=== PATIENT | male | born 1970 | race Caucasian/White ===

== ENCOUNTER 2017-03-24 16:12 | Emergency (ER) | payer OTHER ==
[~2017-03-24] VITALS: Ht 185.4 cm; Wt 120.0 kg
[~2017-03-24 16:12] MED LIST: ACET500T3 PO; HYDR-2374 PO; IBUP-232 PO; TIZA2CAP3 PO
[2017-03-24 16:13] VITALS: BP 153/97; PULSE 102; RESP 20; TEMP 97.9; O2SAT 96
== END 2017-03-24 18:42 | disposition left against medical advice (07) ==
LOC: NED 16:12
DX: R68.89 Other general symptoms and signs (principal)
CPT/HCPCS: 99281

== ENCOUNTER 2017-11-19 08:08 | Inpatient (IN) | payer OTHER ==
[~2017-11-19] VITALS: Ht 185.4 cm; Wt 125.8 kg
[~2017-11-19 08:08] MED LIST changes: -ACET500T3 PO; +AMIT50TA3 PO; +FENT50DI T-DERMAL; -HYDR-2374 PO; +MEDI220T PO; +MORP1TAB26 PO; +OXYC1TAB36 PO; +TEST200I13 IM; -TIZA2CAP3 PO
[2017-11-19] MEDS ORDERED: ALVIMOPAN 12 MG CAPSULE - On Call PO SCH (09:15)
[2017-11-19] MEDS ORDERED: POVIDONE IODINE 5% (ANTISEPSIS KIT) 4 APPLICATIONS EACH NARE PRN (09:30)
[2017-11-19] MEDS ORDERED: metroNIDAZOLE 500 MG INJ 100 ML IV SCH (09:30)
[2017-11-19] MEDS ORDERED: ACETAMINOPHEN 1000 MG/100 ML 100 ML IV SCH (09:30)
[2017-11-19] MEDS ORDERED: CHLORHEXIDINE GLUCONATE 2 % 1 PACK (2 CLOTHS) TOPICAL PRN (09:30)
[2017-11-19] MEDS ORDERED: METOPROLOL TARTRATE 25 MG TAB PO PRN (09:30)
[2017-11-19] MEDS ORDERED: SODIUM CHLORID 0.9% 500 ML IV PRN (09:30)
[2017-11-19] MEDS ORDERED: LACTATED RINGER'S 1000 ML IV PRN (09:30)
[2017-11-19] MEDS ORDERED: ceFAZolin 2 GM PREMIX 50 ML IV SCH (09:30)
[2017-11-19] MEDS ORDERED: ARTIFICIAL TEARS OPTH OINT 3.5 APPLIC/3.5 GM TUBO ONE (11:29)
[2017-11-19] MEDS ORDERED: VECURONIUM BROMIDE 20 MG VIAL IV ONE (12:00)
[2017-11-19] MEDS ORDERED: ceFAZolin INJ 1,000 MG VIAL IV ONE ×2 (12:00→17:02)
[2017-11-19] MEDS ORDERED: LIDOCAINE HCL 1% PF 5 ML SYRINGE OTHER ONE (12:00)
[2017-11-19] MEDS ORDERED: ROCURONIUM INJ 50 MG/5 ML SYRINGE IV PUSH ONE (12:00)
[2017-11-19] MEDS ORDERED: NORMOSOL R INJ 1,000 ML IV ONE (12:00)
[2017-11-19] MEDS ORDERED: DEXAMETHASONE SOD PHOS 4 MG/ML VIAL IV ONE (12:00)
[2017-11-19] MEDS ORDERED: STERILE WATER FOR INJECTION 20 ML VIAL IV ONE (12:00)
[2017-11-19] MEDS ORDERED: GLYCOPYRROLATE 1 MG/5 ML SYRINGE IV PUSH ONE (12:00)
[2017-11-19] MEDS ORDERED: SODIUM CHLORIDE 0.9% 20 ML VIAL IV ONE (12:00)
[2017-11-19] MEDS ORDERED: ESMOLOL HCL 100 MG/10 ML VIAL IV ONE (12:00)
[2017-11-19] MEDS ORDERED: PROPOFOL 200 MG/20 ML AMP IV ONE (12:00)
[2017-11-19] MEDS ORDERED: HYDROmorphone HCL PF 1 MG/ML VIAL ONE (12:09)
[2017-11-19] MEDS ORDERED: BUPIVACAINE/EPINEPHRINE 0.25% 50 ML VIAL ONE (12:09)
[2017-11-19] MEDS ORDERED: FAMOTIDINE 20 MG/2 ML VIAL ONE (12:09)
[2017-11-19] MEDS ORDERED: GLUCAGON 1 MG/ML VIAL ONE (16:12)
[2017-11-19] MEDS ORDERED: MIDAZOLAM HCL 2 MG/2 ML VIAL ONE ×2 (17:28→19:46)
[2017-11-19] MEDS ORDERED: SUGAMMADEX SODIUM 200 MG/2 ML VIAL IV PUSH ONE (17:29)
[2017-11-19] MEDS ORDERED: Post-op Orders (for Pharmacy) XX ONE (17:30)
[2017-11-19] MEDS ORDERED: ZOLPIDEM TARTRATE 5 MG TAB PO PRN (17:30)
[2017-11-19] MEDS ORDERED: ONDANSETRON HCL 4 MG/2 ML VIAL IV PUSH PRN (17:30)
[2017-11-19] MEDS ORDERED: SODIUM CHLORIDE 0.9% FLUSH 10 ML FLUSH IV FLUSH PRN (17:30)
[2017-11-19] MEDS ORDERED: NALOXONE HCL 0.4 MG/ML AMP IV PUSH PRN ×2 (17:30)
[2017-11-19] MEDS ORDERED: diphenhydrAMINE HCL 50 MG/ML VIAL IV PUSH PRN (17:30)
[2017-11-19] MEDS: PCA - TOTAL MG DILAUDID DELIVERED PER SHIFT OTHER SCH ×2 (17:30→22:00)
[2017-11-19] MEDS ORDERED: DO NOT ADM ANY ANTICOAGULANT DRUGS PRN (17:45)
[2017-11-19] MEDS ORDERED: *MEPERIDINE 25 MG INJ VIAL PERIprocedural Use ONLY ONE (17:51)
[2017-11-19] MEDS ORDERED: fentaNYL 50 MCG/HR PATCH T-DERMAL SCH (18:00)
[2017-11-19] MEDS ORDERED: *HYDROmorphone PF 1 MG VIAL PERIprocedural Use ONLY ONE ×4 (18:03→18:41)
[2017-11-19] MEDS ORDERED: BACITRACIN TOP OINT 15 GM TUBE ONE (18:06)
[2017-11-19] MEDS: KETOROLAC TROMETHAMINE 30 MG/ML (IVP) VIAL IV PUSH SCH ×2 (18:20→23:14)
[2017-11-19] MEDS: PANTOPRAZOLE SODIUM 40 MG VIAL IV PUSH SCH (18:25)
[2017-11-19] MEDS: LACTATED RINGER'S 1000 ML INJ 1,000 ML IV SCH (18:30)
[2017-11-19] MEDS: ACETAMINOPHEN 1000 MG/100 ML 100 ML IV SCH ×2 (18:30→23:14)
[2017-11-19] MEDS: HYDROmorphone HCL PCA 6 MG/30 ML IV SCH ×2 (18:37→23:31)
[2017-11-19] MEDS ORDERED: BUPIVACAINE LIPOSOME PF 1.3% 20 ML VIAL ONE (19:43)
[2017-11-19] MEDS ORDERED: LIDOCAINE HCL 1% 20 ML VIAL ONE (19:47)
[2017-11-19 20:00] VITALS: BP 125/98; PULSE 89; RESP 17; TEMP 99.2; O2SAT 95
[2017-11-19] MEDS ORDERED: MIDAZOLAM HCL 2 MG/2 ML VIAL IV ONE (20:30)
[2017-11-19] MEDS: SODIUM CHLORIDE 0.9% FLUSH 10 ML FLUSH IV FLUSH SCH (21:00)
[2017-11-19] MEDS: AMITRIPTYLINE HCL 50 MG TAB PO SCH (23:12)
[2017-11-19] MEDS: MORPHINE SULFATE 60 MG CONTROLLED RELEASE TAB PO SCH (23:13)
[2017-11-20] VITALS: BP 113/67; PULSE 90; RESP 17; TEMP 98.7; O2SAT 96
[2017-11-20] MEDS: LACTATED RINGER'S 1000 ML INJ 1,000 ML IV SCH ×3 (02:17→22:03)
[2017-11-20 04:00] VITALS: BP 112/62; PULSE 72; RESP 17; TEMP 98.9; O2SAT 94
[2017-11-20] MEDS: HYDROmorphone HCL PCA 6 MG/30 ML IV SCH ×5 (04:21→22:59)
[2017-11-20] MEDS: MORPHINE SULFATE 60 MG CONTROLLED RELEASE TAB PO SCH ×3 (05:46→22:04)
[2017-11-20] MEDS: ACETAMINOPHEN 1000 MG/100 ML 100 ML IV SCH ×2 (05:46→11:45)
[2017-11-20] MEDS: KETOROLAC TROMETHAMINE 30 MG/ML (IVP) VIAL IV PUSH SCH ×3 (05:47→18:21)
[2017-11-20] MEDS: PCA - TOTAL MG DILAUDID DELIVERED PER SHIFT OTHER SCH ×3 (05:55→22:00)
[2017-11-20 08:00] VITALS: BP 102/59; PULSE 88; RESP 17; TEMP 97; O2SAT 93
[2017-11-20 08:43] LABS: AUTOMATED NEUTROPHIL # 11.2 TH/MM3 (1.8-7.7); BASOPHIL % 0.2 % (0.0-2.0); EOSINOPHIL % 0.1 % (0.0-4.0); HEMATOCRIT 34.7 % (39.0-51.0); HEMOGLOBIN 11.7 GM/DL (13.0-17.0); LYMPH % 6.7 % (9.0-44.0); LYMPHOCYTE # 0.9 TH/MM3 (1.0-4.8); MEAN CELL VOLUME 90.8 FL (80.0-100.0); MEAN CORPUSCULAR HEMOGLOBIN 30.7 PG (27.0-34.0); MEAN CORPUSCULAR HGB CONC 33.8 % (32.0-36.0); MEAN PLATELET VOLUME 9.1 FL (7.0-11.0); MONO % 7.7 % (0.0-8.0); NEUT % 85.3 % (16.0-70.0); PLATELET COUNT 195 TH/MM3 (150-450); RED BLOOD COUNT 3.82 MIL/MM3 (4.50-5.90); RED CELL DISTRIBUTION WIDTH 13.6 % (11.6-17.2); WHITE BLOOD COUNT 13.1 TH/MM3 (4.0-11.0)
[2017-11-20] MEDS: SODIUM CHLORIDE 0.9% FLUSH 10 ML FLUSH IV FLUSH SCH ×2 (09:00→21:00)
[2017-11-20 09:13] LABS: BICARBONATE 27.4 MEQ/L (21.0-32.0); CREATININE 0.96 MG/DL (0.60-1.30)
[2017-11-20] MEDS: DOCUSATE SODIUM 100 MG CAP PO SCH ×2 (09:45→22:03)
[2017-11-20] MEDS: ALVIMOPAN 12 MG CAPSULE - Post-op dosing PO SCH ×2 (09:49→22:04)
--- NOTE | 2017-11-20 09:49 | HHI.PR ---
Subjective Subjective Notes C/o some pain, denies nausea. Had some small liquid BMs last one only slightly bloody. Has been out of bed. Objective Vitals/I&O Vital Signs Date Time Temp Pulse Resp B/P (MAP) Pulse Ox O2 Delivery O2 Flow Rate FiO2 11/20/17 08:00 97.0 88 17 102/59 (73) 93 11/20/17 02:04 Nasal Cannula 2.00 Labs Laboratory Tests Test 11/20/17 07:28 White Blood Count 13.1 Red Blood Count 3.82 Hemoglobin 11.7 Hematocrit 34.7 Mean Corpuscular Volume 90.8 Mean Corpuscular Hemoglobin 30.7 Mean Corpuscular Hemoglobin Concent 33.8 Red Cell Distribution Width 13.6 Platelet Count 195 Mean Platelet Volume 9.1 Neutrophils (%) (Auto) 85.3 Lymphocytes (%) (Auto) 6.7 Monocytes (%) (Auto) 7.7 Eosinophils (%) (Auto) 0.1 Basophils (%) (Auto) 0.2 Neutrophils # (Auto) 11.2 Lymphocytes # (Auto) 0.9 Monocytes # (Auto) 1.0 Eosinophils # (Auto) 0.0 Basophils # (Auto) 0.0 CBC Comment DIFF FINAL Differential Comment Blood Urea Nitrogen 17 Creatinine 0.96 Random Glucose 101 Calcium Level 8.0 Sodium Level 134 Potassium Level 4.2 Chloride Level 100 Carbon Dioxide Level 27.4 Anion Gap 7 Estimat Glomerular Filtration Rate 84 Narrative Exam NAD, comfortable, alert nonlabored breathing Abd: soft, inc intact. Bandage at colostomy site somewhat bloody. Goins clear urine A/P Assessment and Plan 47 yo M POD 1 robot assisted colostomy reversal. Doing well post op. D/c goins. Soft diet. Stool softeners. Continue home fentanyl patch and oramorph. 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 Patricio. Leopoldo Chicas MD Nov 20, 2017 09:49
[2017-11-20 12:00] VITALS: BP 103/65; PULSE 85; RESP 17; TEMP 97.3; O2SAT 94
[2017-11-20 16:00] VITALS: BP 105/68; PULSE 82; RESP 18; TEMP 96.5; O2SAT 94
[2017-11-20] MEDS: ENOXAPARIN SODIUM 40 MG/0.4 ML SYRINGE SQ SCH (18:20)
[2017-11-20] MEDS: PANTOPRAZOLE SODIUM 40 MG VIAL IV PUSH SCH (18:21)
[2017-11-20 20:00] VITALS: BP 125/76; PULSE 95; RESP 17; TEMP 98.6; O2SAT 93
[2017-11-20] MEDS: AMITRIPTYLINE HCL 50 MG TAB PO SCH (22:03)
[2017-11-21] VITALS: BP 131/62; PULSE 91; RESP 17; TEMP 98.9; O2SAT 98
[2017-11-21] MEDS: HYDROmorphone HCL PCA 6 MG/30 ML IV SCH ×5 (03:11→22:03)
[2017-11-21 04:00] VITALS: BP 137/61; PULSE 92; RESP 17; TEMP 98.9; O2SAT 95
[2017-11-21 05:33] LABS: AUTOMATED NEUTROPHIL # 6.3 TH/MM3 (1.8-7.7); BASOPHIL # 0.1 TH/MM3 (0-0.2); BASOPHIL % 0.8 % (0.0-2.0); EOSINOPHIL # 0.4 TH/MM3 (0-0.4); EOSINOPHIL % 4.8 % (0.0-4.0); HEMATOCRIT 34.6 % (39.0-51.0); LYMPH % 18.2 % (9.0-44.0); LYMPHOCYTE # 1.7 TH/MM3 (1.0-4.8); MEAN CELL VOLUME 91.2 FL (80.0-100.0); MEAN CORPUSCULAR HEMOGLOBIN 31.7 PG (27.0-34.0); MEAN CORPUSCULAR HGB CONC 34.7 % (32.0-36.0); MEAN PLATELET VOLUME 9.2 FL (7.0-11.0); MONOCYTE # 0.7 TH/MM3 (0-0.9); NEUT % 68.2 % (16.0-70.0); PLATELET COUNT 199 TH/MM3 (150-450); RED BLOOD COUNT 3.79 MIL/MM3 (4.50-5.90); WHITE BLOOD COUNT 9.3 TH/MM3 (4.0-11.0)
[2017-11-21] MEDS: MORPHINE SULFATE 60 MG CONTROLLED RELEASE TAB PO SCH ×3 (05:46→22:08)
[2017-11-21] MEDS: KETOROLAC TROMETHAMINE 30 MG/ML (IVP) VIAL IV PUSH SCH ×5 (05:46→23:23)
[2017-11-21] MEDS: PCA - TOTAL MG DILAUDID DELIVERED PER SHIFT OTHER SCH ×3 (05:49→22:00)
[2017-11-21 08:00] VITALS: BP 113/70; PULSE 78; RESP 18; TEMP 98.1; O2SAT 95
[2017-11-21] MEDS: SODIUM CHLORIDE 0.9% FLUSH 10 ML FLUSH IV FLUSH SCH ×2 (09:00→21:00)
[2017-11-21] MEDS: DOCUSATE SODIUM 100 MG CAP PO SCH ×2 (09:05→22:07)
[2017-11-21] MEDS: ALVIMOPAN 12 MG CAPSULE - Post-op dosing PO SCH ×2 (09:05→22:07)
[2017-11-21 12:00] VITALS: BP 123/75; PULSE 72; RESP 18; TEMP 96.5; O2SAT 96
[2017-11-21] MEDS ORDERED: oxyCODONE/ACETAMINOPHEN 10 MG/325 MG TAB PO PRN (13:15)
--- NOTE | 2017-11-21 14:12 | HHI.PR ---
Subjective Subjective Notes Somewhat irritable. Concerned about the abrasion on his face causing scarring. He is also having more pain today. 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 He is tolerating soft diet/ full liquids. + flatus and has had BMs. Objective Vitals/I&O Vital Signs Date Time Temp Pulse Resp B/P (MAP) Pulse Ox O2 Delivery O2 Flow Rate FiO2 11/21/17 12:00 96.5 72 18 123/75 (91) 96 11/20/17 02:04 Nasal Cannula 2.00 Labs Laboratory Tests Test 11/21/17 04:38 White Blood Count 9.3 Red Blood Count 3.79 Hemoglobin 12.0 Hematocrit 34.6 Mean Corpuscular Volume 91.2 Mean Corpuscular Hemoglobin 31.7 Mean Corpuscular Hemoglobin Concent 34.7 Red Cell Distribution Width 14.0 Platelet Count 199 Mean Platelet Volume 9.2 Neutrophils (%) (Auto) 68.2 Lymphocytes (%) (Auto) 18.2 Monocytes (%) (Auto) 8.0 Eosinophils (%) (Auto) 4.8 Basophils (%) (Auto) 0.8 Neutrophils # (Auto) 6.3 Lymphocytes # (Auto) 1.7 Monocytes # (Auto) 0.7 Eosinophils # (Auto) 0.4 Basophils # (Auto) 0.1 CBC Comment DIFF FINAL Differential Comment Narrative Exam NAD, comfortable, alert nonlabored breathing Abd: soft, inc c/d/i A/P Assessment and Plan 47 yo M POD 2 robot assisted colostomy reversal. Doing well post op. Pain today. Soft diet. Stool softeners. Continue home fentanyl patch and oramorph. Dilaudid SOLUTION MAKE UP OPERATOR. Add percocet today and he will attempt weaning from SOLUTION MAKE UP OPERATOR Bacitracin for facial abrasion which appears to be from tape during operation. SCDs. Lovenox. Juan Francisco,Leopoldo MURILLO Nov 21, 2017 14:12
[2017-11-21 16:00] VITALS: BP 129/79; PULSE 80; RESP 18; TEMP 98.3; O2SAT 97
[2017-11-21] MEDS: BACITRACIN TOP OINT 15 GM TUBE TOPICAL SCH ×2 (16:43→22:19)
[2017-11-21] MEDS: PANTOPRAZOLE SODIUM 40 MG VIAL IV PUSH SCH (16:44)
[2017-11-21] MEDS: ENOXAPARIN SODIUM 40 MG/0.4 ML SYRINGE SQ SCH (16:45)
[2017-11-21] MEDS: oxyCODONE/ACETAMINOPHEN 10 MG/325 MG TAB PO PRN ×2 (16:46→23:23)
[2017-11-21 20:00] VITALS: BP 132/74; PULSE 76; RESP 20; TEMP 96.9; O2SAT 93
[2017-11-21] MEDS: AMITRIPTYLINE HCL 50 MG TAB PO SCH (22:07)
[2017-11-22] VITALS: BP 124/78; PULSE 67; RESP 20; TEMP 96.5; O2SAT 95
[2017-11-22] MEDS: LACTATED RINGER'S 1000 ML INJ 1,000 ML IV SCH (00:44)
[2017-11-22 04:00] VITALS: BP 138/83; PULSE 69; RESP 20; TEMP 96.8; O2SAT 97
[2017-11-22] MEDS: oxyCODONE/ACETAMINOPHEN 10 MG/325 MG TAB PO PRN ×2 (05:29→11:44)
[2017-11-22] MEDS: PCA - TOTAL MG DILAUDID DELIVERED PER SHIFT OTHER SCH (06:00)
[2017-11-22] MEDS: KETOROLAC TROMETHAMINE 30 MG/ML (IVP) VIAL IV PUSH SCH ×2 (06:02→11:44)
[2017-11-22] MEDS: MORPHINE SULFATE 60 MG CONTROLLED RELEASE TAB PO SCH (06:03)
[2017-11-22 08:00] VITALS: BP 138/83; PULSE 63; RESP 16; TEMP 96.1; O2SAT 96
[2017-11-22] MEDS: ALVIMOPAN 12 MG CAPSULE - Post-op dosing PO SCH (08:37)
[2017-11-22] MEDS: BACITRACIN TOP OINT 15 GM TUBE TOPICAL SCH (08:37)
[2017-11-22] MEDS: DOCUSATE SODIUM 100 MG CAP PO SCH (08:37)
[2017-11-22] MEDS: SODIUM CHLORIDE 0.9% FLUSH 10 ML FLUSH IV FLUSH SCH (08:37)
[2017-11-22] MEDS: HYDROmorphone HCL PCA 6 MG/30 ML IV SCH (09:12)
[2017-11-22 09:49] VITALS: RESP 16
[2017-11-22] MEDS ORDERED: OXYC1TAB36 PO (11:50)
--- NOTE | 2017-11-22 11:53 | HHI.DS ---
Discharge Summary Admission Date Nov 19, 2017 at 08:08 Discharge Date: Nov 22, 2017 Admitting Diagnosis Colostomy in place, h/o perforated diverticulitis Procedures Robot assisted laparoscopic colostomy reversal Brief History 47 yo M on chronic narcotic pain medications for back pain presents for elective colostomy reversal. CBC/BMP: 11/21/17 0438 11/20/17 0728 Significant Findings Laboratory Tests Test 11/20/17 07:28 11/21/17 04:38 White Blood Count 13.1 TH/MM3 (4.0-11.0) Red Blood Count 3.82 MIL/MM3 (4.50-5.90) 3.79 MIL/MM3 (4.50-5.90) Hemoglobin 11.7 GM/DL (13.0-17.0) 12.0 GM/DL (13.0-17.0) Hematocrit 34.7 % (39.0-51.0) 34.6 % (39.0-51.0) Neutrophils (%) (Auto) 85.3 % (16.0-70.0) Lymphocytes (%) (Auto) 6.7 % (9.0-44.0) Neutrophils # (Auto) 11.2 TH/MM3 (1.8-7.7) Lymphocytes # (Auto) 0.9 TH/MM3 (1.0-4.8) Monocytes # (Auto) 1.0 TH/MM3 (0-0.9) Calcium Level 8.0 MG/DL (8.5-10.1) Sodium Level 134 MEQ/L (136-145) Estimat Glomerular Filtration Rate 84 ML/MIN (>89) Eosinophils (%) (Auto) 4.8 % (0.0-4.0) PE at Discharge NAD, comfortable, alert nonlabored breathing Abd: soft, inc c/d/i Hospital Course Post tolerating clears and then soft diet with + flatus and bowel movts. 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 Ambulating independently. Pt Condition on Discharge: Good Discharge Disposition: Discharge Home Discharge Instructions DIET: Follow Instructions for: As Tolerated, No Restrictions Activities you can perform: See Additionl Instruction Other Activity Instructions: Avoid heavy lifting. Ok to shower. Follow up Referrals: Surgical - 2 Weeks with Leopoldo Chicas MD New Medications: Oxycodone HCl/Acetaminophen (Oxycodone-Acetaminophen 10-325) 10 Mg-325 Mg Tablet 1-2 TAB PO Q6H PRN for PAIN, #45 TAB Continued Medications: Amitriptyline (Amitriptyline) 50 Mg Tab 50 MG PO HS, TAB Fentanyl Patch 72 HR (Fentanyl Patch 72 HR) 50 Mcg/Hr Patch 50 MCG T-DERMAL Q72H for Pain Management, #10 PATCH 0 Refills Remove old patch when new one placed. Ibuprofen (Ibuprofen) 600 Mg Tab 600 MG PO Q6H PRN for PAIN SCALE 1 TO 10, TAB 0 Refills Morphine ER (Morphine ER) 60 Mg Tab 60 MG PO Q8H for Pain Management, TAB 0 Refills Naproxen Sodium (Naproxen Sodium) 220 Mg Tab 220 MG PO BID PRN for Pain Management, TAB 0 Refills Testosterone Enanthate Inj (Testosterone Enanthate Inj) 200 Mg/Ml Inj 200 MG IM Q15D for Hormone Replacement, #1 VIAL 0 Refills Discontinued Medications: Oxycodone-Acetaminophen (Oxycodone-Acetaminophen) 10-325 mg Tab 1 TAB PO TID PRN for PAIN, TAB 0 Refills Leopoldo Chicas MD Nov 22, 2017 11:53
[2017-11-22] MEDS ORDERED: REMOVE OLD PATCH T-DERMAL SCH (18:00)
--- NOTE | 2017-11-27 10:02 | MP ---
cc: ELIZ NAVARRO MD DATE OF SURGERY 11/19/2017 PREOPERATIVE DIAGNOSIS History of perforated diverticulitis, colostomy in place. POSTOPERATIVE DIAGNOSIS History of perforated diverticulitis, colostomy in place. PROCEDURE Robot assisted laparoscopic colostomy reversal. SURGEON Eliz Navarro MD MACHINERY RIGGER SURGEON Franklin John MD Leather Cartridge Belt Maker Ciarra [facility] ANESTHESIA General anesthesia ESTIMATED BLOOD LOSS 100 cc SPECIMENS 1. Colostomy 2. Superior rectum OPERATIVE FINDINGS The patient had omental adhesions to the upper abdominal ventral hernia. The colostomy reversal was uncomplicated. PROCEDURE IN DETAIL The patient was taken to the operating room and placed in a supine position. General anesthesia was induced. The abdomen was prepped and draped in the usual sterile fashion. A surgical time-out was performed to verify correct patient, procedure and site. The colostomy site had been closed with a silk suture and covered with Tegaderm. A 12-mm incision was made in the right upper abdomen and a 5-mm OptiView trocar inserted to enter the abdomen and insufflation was initiated. The abdomen was insufflated to 15 mmHg with CO2 gas which the patient tolerated well. A 12-mm robotic port was then placed in the right lower abdomen. A 5-mm medical receptionist assistant port was placed in the right upper lateral abdomen. Attention was turned to the mid upper abdomen where there was a significant amount of omentum adherent to the ventral hernia in the upper abdomen. The omentum was dissected free from the abdominal wall using blunt dissection and judicious use of electrocautery. An 8-mm robotic trocar was then placed in the epigastrium. Another 8-mm robotic trocar placed in the left lateral abdomen. The patient was placed in Trendelenburg position. The small bowel was attempted to be pulled out of the pelvis, however, there was a loop of small bowel adherent to the rectal stump. The small bowel was densely adherent and was carefully sharply. At this point, the small bowel was able to be pulled out of the abdomen. Omental adhesions to the colon going up to the abdominal wall at the colostomy were taken down with sharp dissection. The splenic flexure appeared to have been taken down at the previous operation. There were some adhesions of the splenic flexure to omental and mesenteric fat in the left upper quadrant and these adhesions were carefully sharply until the descending colon and splenic flexure were freely mobile. At this point, the patient was placed in full Trendelenburg position and the Da Jolie robot was docked. Attention was turned to the pelvis. The rectal stump was visualized as there was a Prolene suture attaching it to the left pelvic sidewall. Adhesions around the upper rectum were carefully taken down with hook electrocautery. The lateral peritoneal attachments were taken down with a hook electrocautery and initial dissection posteriorly. A site was chosen approximately 6 cm from the current staple line to transect the upper rectum. The vessel sealer was used to divide the mesorectum up to this point. The transected upper rectum and distal sigmoid was left in the abdomen at this point. The Da Jolie robot was undocked. Attention was turned to take down of the colostomy. I scrubbed into the case and an elliptical incision was made. Dissection was carried out sharply and then with electrocautery down to the underlying fascia. The colon was from surrounding fascia and was able to be pulled up through the incision. A site away from any inflammation on the distal descending colon here was chosen for transection and cleared of any fat. The pursestring suture device was placed and fired and the colostomy was removed. Sizers were placed into the distal descending colon and a 29 mm stapler chosen. The anvil was placed into the distal descending colon and the pursestring device tied. The descending colon and anvil were placed into the abdominal cavity. The Natan retractor and cap were placed. The laparoscopic equipment was then set back up and the abdomen reinsufflated. Attention was turned to the rectum. Dr. Chen performed rigid sigmoidoscopy followed by entrance of the 29-mm EEA stapler. The stapler was brought out anterior to the staple line on the rectum. The anvil was attached to the stapler and the stapler was fired. There was no tension and the colon was in proper orientation. There was no bleeding or hematoma present. A leak test was performed where saline was placed in the pelvis and the rectum was insufflated and there was no leak from the anastomosis. At this point, laparoscopic equipment was removed. The Natan retractor was removed from the colostomy site and the abdomen allowed to desufflate. The intra-abdominal specimen was extracted. The colostomy site was closed in two layers of #1 PDS suture. The wound was irrigated and skin closed the wide skin stapler. The fascia at the 12-mm port site incisions was closed with 0 Vicryl suture and skin with subcuticular 4-0 Monocryl. The patient tolerated procedure well. Sponge and instrument counts were correct. He was extubated and taken to PACU in stable condition. MD EVA Velez/TOMMY /3:16 PM /9:31 AM
== END 2017-11-22 13:00 | disposition home or self-care (01) | DRG 331 ==
LOC: HSDI 08:08 → EDSTATUS 13:30 → N07A 20:45
PROVIDERS: ADMIT Surgery; ATTEND Surgery
PROC: 8E0W4CZ Robotic Assisted Procedure of Trunk Region, Percutaneous Endoscopic Approach (ICD-10-PCS; 2017-11-19)
PROC: 0DQM0ZZ Repair Descending Colon, Open Approach (ICD-10-PCS; principal; 2017-11-19 12:28)
DX: Z43.3 Encounter for attention to colostomy (principal); S00.81XA Abrasion of other part of head, initial encounter; Z79.891 Long term (current) use of opiate analgesic; X58.XXXA Exposure to other specified factors, initial encounter; Y93.89 Activity, other specified; Y92.234 Operating room of hospital as the place of occurrence of the external cause
CPT/HCPCS: 80048; 85025; 88304; 88305; 94150; C9113; C9290; J0131; J0690; J1100; J1170; J1610; J1650; J1885; J2175; J2250; J3010; J7120

== ENCOUNTER 2017-11-25 09:51 | Observation (INO) | payer OTHER ==
[~2017-11-25] VITALS: Ht 182.9 cm; Wt 116.3 kg
[2017-11-25 09:52] VITALS: BP 122/75; PULSE 100; RESP 18; TEMP 98.8; O2SAT 100
[2017-11-25] MEDS ORDERED: SODIUM CHLOR 0.9% 1000 ML INJ 1,000 ML IV ONE (11:30)
[2017-11-25 11:51] LABS: AUTOMATED NEUTROPHIL # 15.8 TH/MM3 (1.8-7.7); BASOPHIL # 0.1 TH/MM3 (0-0.2); BASOPHIL % 0.5 % (0.0-2.0); EOSINOPHIL # 0.6 TH/MM3 (0-0.4); HEMATOCRIT 40.8 % (39.0-51.0); LYMPH % 6.7 % (9.0-44.0); LYMPHOCYTE # 1.2 TH/MM3 (1.0-4.8); MEAN CELL VOLUME 91.1 FL (80.0-100.0); MEAN CORPUSCULAR HEMOGLOBIN 31.3 PG (27.0-34.0); MEAN CORPUSCULAR HGB CONC 34.3 % (32.0-36.0); MEAN PLATELET VOLUME 8.2 FL (7.0-11.0); MONO % 5.6 % (0.0-8.0); NEUT % 84.2 % (16.0-70.0); PLATELET COUNT 322 TH/MM3 (150-450); RED BLOOD COUNT 4.48 MIL/MM3 (4.50-5.90); RED CELL DISTRIBUTION WIDTH 13.5 % (11.6-17.2); WHITE BLOOD COUNT 18.7 TH/MM3 (4.0-11.0)
[2017-11-25 12:01] LABS: BILIRUBIN, URINE NEG (NEG); BLOOD, URINE NEG (NEG); GLUCOSE,URINE NEG (NEG); HYALINE CAST, URINE 3 /lpf (RARE); KETONE, URINE TRACE mg/dL (NEG); MUCUS URINE FEW /lpf (OCC); NITRITE,URINE NEG (NEG); SQUAMOUS EPITHELIAL CELL URINE <1 /hpf (0-5); URINE COLOR YELLOW (YELLW/STRAW); URINE LEUKOCYTE ESTERASE NEG (NEG)
[2017-11-25 12:04] LABS: ALBUMIN 3.8 GM/DL (3.4-5.0); AST (GOT) 21 U/L (15-37); BICARBONATE 28.2 MEQ/L (21.0-32.0); BLOOD UREA NITROGEN 16 MG/DL (7-18); CALCIUM 9.7 MG/DL (8.5-10.1); CHLORIDE 100 MEQ/L (98-107); CREATININE 0.88 MG/DL (0.60-1.30); GLOMERULAR FILTRATION RATE 92 ML/MIN (>89); GLUCOSE,RANDOM 91 MG/DL (74-106); SODIUM (NA) 136 MEQ/L (136-145)
[2017-11-25 12:05] LABS: ALT (GPT) 21 U/L (12-78)
[2017-11-25 12:07] LABS: ALKALINE PHOSPHATASE 91 U/L (45-117); TOTAL BILIRUBIN ADULT 0.5 MG/DL (0.2-1.0); TOTAL PROTEIN 8.3 GM/DL (6.4-8.2)
[2017-11-25] MEDS ORDERED: PIPERACIL-TAZO 3.375 GM PREMIX 50 ML IV ONE (12:15)
--- NOTE | 2017-11-25 12:43 | PD ---
HPI Chief Complaint: Abnormal Results Time Seen by Provider: 11:13 Travel History International Travel<30 days: No Contact w/Intl Traveler<30days: No Traveled to known affect area: No History of Present Illness HPI This as a 47-year-old male who had a colostomy reversal performed 6 days ago who presents to the emergency department with fevers or chills. He says ever since the procedure he has felt generally weak, constant, moderate severity associated with sweating and chills. He has had mild crampy abdominal pain ever since the surgery. He says he has had some trouble initiating his urine stream but he thinks it may be secondary to postoperative pain. He denies any cough or other upper respiratory symptoms. PFSH Past Medical History Cancer: No Cardiovascular Problems: No Diabetes: No Diminished Hearing: No Endocrine: No Gastrointestinal Disorders: Yes (COLOSTOMY, DIVERTICULITIS WITH PERFORATION) Genitourinary: No Hepatitis: No Hiatal Hernia: No Immune Disorder: No Musculoskeletal: No Neurologic: Yes (DDD, SPONDYLOLISTHESIS) Psychiatric: No Reproductive: No Respiratory: No Immunizations Current: Yes Thyroid Disease: No Tetanus Vaccination: < 5 Years Influenza Vaccination: No Past Surgical History Abdominal Surgery: Yes (RESECTION WITH COLOSTOMY, REVERSAL OF COLOSTOMY) AICD: No Appendectomy: Yes Body Medical Devices: POST FRONT TOOTH Cardiac Surgery: No Ear Surgery: No Endocrine Surgery: No Eye Surgery: No Genitourinary Surgery: No Joint Replacement: No Oral Surgery: No Pacemaker: No Thoracic Surgery: No Other Surgery: Yes Social History Alcohol Use: Yes (OCCASIONAL ETOH ABUSE) Tobacco Use: No Substance Use: No (NO ILLEGAL DRUGS, PRESCRIPTION PAIN PILLS ONLY) Allergies-Medications (Allergen,Severity, Reaction): Coded Allergies: aspirin (Unverified Allergy, Unknown, 11/25/17) Reported Meds & Prescriptions Reported Meds & Active Scripts Active Oxycodone-Acetaminophen 10-325 (Oxycodone HCl/Acetaminophen) 10 Mg-325 Mg Tablet 1-2 Tab PO Q6H PRN Reported Naproxen Sodium 220 Mg Tab 220 Mg PO BID PRN Testosterone Enanthate Inj (Testosterone Enanthate) 200 Mg/Ml Inj 200 Mg IM Q15D Amitriptyline (Amitriptyline HCl) 50 Mg Tab 50 Mg PO HS Fentanyl Patch 72 HR (Fentanyl) 50 Mcg/Hr Patch 50 Mcg T-DERMAL Q72H Remove old patch when new one placed. Morphine ER (Morphine Sulfate) 60 Mg Tab 60 Mg PO Q8H Ibuprofen 600 Mg Tab 600 Mg PO Q6H PRN Review of Systems Except as stated in HPI: all other systems reviewed are Neg Physical Exam Narrative GENERAL:Well appearing, no acute distress SKIN: Minimal erythema around surgical site with no induration or drainage. Erythema aligns with bandage site. HEAD: Atraumatic. Normocephalic. EYES: Pupils equal and round. No injection or drainage. ENT: Moist mucous membranes NECK: Trachea midline. CARDIOVASCULAR: Regular rate and rhythm. No murmur appreciated. RESPIRATORY: Clear to auscultation. Breath sounds equal bilaterally. GASTROINTESTINAL: Abdomen soft, tender to palpation in the lower abdomen with no rebound or guarding. MUSCULOSKELETAL: No obvious deformities. NEUROLOGICAL: Awake and alert. No obvious cranial nerve deficits. Moving all extremities. PSYCHIATRIC: Appropriate mood and affect; insight and judgment normal. Data Data Last Documented VS Vital Signs Date Time Temp Pulse Resp B/P (MAP) Pulse Ox O2 Delivery O2 Flow Rate FiO2 11/25/17 10:16 99 18 100 Room Air 11/25/17 09:52 98.8 122/75 (91) Orders Orders Complete Blood Count With Diff (11/25/17 11:21) Comprehensive Metabolic Panel (11/25/17 11:21) Lactic Acid (11/25/17 11:21) ^ Insert Iv (11/25/17 11:21) Urinalysis - C+S If Indicated (11/25/17 11:21) Sodium Chlor 0.9% 1000 Ml Inj (Ns 1000 M (11/25/17 11:30) Blood Culture (11/25/17 12:12) Piperacil-Tazo 3.375 Gm Premix (Zosyn 3. (11/25/17 12:15) Ct Abd/Pel W Iv Contrast(Rout) (11/25/17 ) Iohexol 350 Inj (Omnipaque 350 Inj) (11/25/17 12:56) Morphine Inj (Morphine Inj) (11/25/17 13:15) Hydromorphone Pf Inj (Dilaudid Pf Inj) (11/25/17 13:15) Admit Order (Ed Use Only) (11/25/17 13:35) Vital Signs (Adult) Q4H (11/25/17 13:36) Diet Npo (11/25/17 Lunch) Activity Oob With Assistance (11/25/17 13:36) Notify Dr: Other (11/25/17 13:36) Labs Laboratory Tests Test 11/25/17 11:30 White Blood Count 18.7 TH/MM3 Red Blood Count 4.48 MIL/MM3 Hemoglobin 14.0 GM/DL Hematocrit 40.8 % Mean Corpuscular Volume 91.1 FL Mean Corpuscular Hemoglobin 31.3 PG Mean Corpuscular Hemoglobin Concent 34.3 % Red Cell Distribution Width 13.5 % Platelet Count 322 TH/MM3 Mean Platelet Volume 8.2 FL Neutrophils (%) (Auto) 84.2 % Lymphocytes (%) (Auto) 6.7 % Monocytes (%) (Auto) 5.6 % Eosinophils (%) (Auto) 3.0 % Basophils (%) (Auto) 0.5 % Neutrophils # (Auto) 15.8 TH/MM3 Lymphocytes # (Auto) 1.2 TH/MM3 Monocytes # (Auto) 1.0 TH/MM3 Eosinophils # (Auto) 0.6 TH/MM3 Basophils # (Auto) 0.1 TH/MM3 CBC Comment DIFF FINAL Differential Comment Urine Color YELLOW Urine Turbidity CLEAR Urine pH 6.0 Urine Specific [place] 1.036 Urine Protein 30 mg/dL Urine Glucose (UA) NEG mg/dL Urine Ketones TRACE mg/dL Urine Occult Blood NEG Urine Nitrite NEG Urine Bilirubin NEG Urine Urobilinogen 2.0 MG/DL Urine Leukocyte Esterase NEG Urine RBC 3 /hpf Urine WBC 2 /hpf Urine Squamous Epithelial Cells <1 /hpf Urine Hyaline Casts 3 /lpf Urine Mucus FEW /lpf Microscopic Urinalysis Comment CULT NOT INDICATED Blood Urea Nitrogen 16 MG/DL Creatinine 0.88 MG/DL Random Glucose 91 MG/DL Total Protein 8.3 GM/DL Albumin 3.8 GM/DL Calcium Level 9.7 MG/DL Alkaline Phosphatase 91 U/L Aspartate Amino Transf (AST/SGOT) 21 U/L Alanine Aminotransferase (ALT/SGPT) 21 U/L Total Bilirubin 0.5 MG/DL Sodium Level 136 MEQ/L Potassium Level 4.6 MEQ/L Chloride Level 100 MEQ/L Carbon Dioxide Level 28.2 MEQ/L Anion Gap 8 MEQ/L Estimat Glomerular Filtration Rate 92 ML/MIN Lactic Acid Level 1.2 mmol/L [facility] Medical Decision Making Medical Screen Exam Complete: Yes Emergency Medical Condition: Yes Interpretation(s) Afebrile, mildly tachycardic Leukocytosis 84% neutrophils Electrolytes are reassuring Lactic acid is normal Urinalysis: No urinary tract infection Differential Diagnosis Wound infection, abscess, anastomosis leak, urinary tract infection, pneumonia Narrative Course This is a 47-year-old male who presents to the emergency department having had a colostomy reversal performed about a week ago. Since then he has been having fevers and chills. He does not localize infectious symptoms. He was placed on a monitor and IV was established. He was found to have a marked leukocytosis. Urinalysis is negative for infection. CT abdomen and pelvis demonstrates some induration and inflammation around the surgical site which is suspected to be normal healing however given the patient's clinical appearance I suspect the patient may have an intra-abdominal source of infection. His wound does not appear infected. Patient will be admitted for IV antibiotics. I discussed the case with Dr. Chicas. Physician Communication Physician Communication Discussed with Dr. Chicas Diagnosis Primary Impression: Sepsis Qualified Codes: A41.9 - Sepsis, unspecified organism Admitting Information Admitting Physician Requests: Admit Erica Dunn MD Nov 25, 2017 12:43
[2017-11-25] MEDS ORDERED: IOHEXOL 350 MG/ML 10 ML VIAL (for RAD DIAG) IVCONTRAST ONE (12:56)
[2017-11-25] MEDS ORDERED: MORPHINE SULFATE 2 MG/ML INJ IV PUSH ONE (13:15)
[2017-11-25] MEDS ORDERED: HYDROmorphone HCL PF 2 MG/ML VIAL IV PUSH ONE (13:15)
--- NOTE | 2017-11-25 13:16 | RADRPT ---
EXAM DATE/TIME: 11/25/2017 12:47 [facility] COMPARISON: CT ABDOMEN & PELVIS W CONTRAST, January 25, 2010, 7:34. INDICATIONS : Fever, elevated white blood count. Abdominal surgery 1 week ago. IV CONTRAST: 71 cc Omnipaque 350 (iohexol) IV ORAL CONTRAST: No oral contrast ingested. RADIATION DOSE: 16.43 CTDIvol (mGy) MEDICAL HISTORY : None SURGICAL HISTORY : Appendectomy. Colostomy with reversal ENCOUNTER: Initial ACUITY: 1 day PAIN SCALE: 0/10 LOCATION: abdomen TECHNIQUE: Volumetric scanning of the abdomen and pelvis was performed. Using automated exposure control and ad justment of the mA and/or kV according to patient size, radiation dose was kept as low as reasonably achievable to obtain optimal diagnostic quality images. DICOM format image data is available electro nically for review and comparison. FINDINGS: LOWER LUNGS: The visualized lower lungs are clear. LIVER: Homogeneous density without lesion. There is no dilation of the biliary tree. No calcified gallston es. SPLEEN: Mildly enlarged measuring 15.9 cm. No focal lesion is seen. PANCREAS: Within normal limits. KIDNEYS: Normal in size and shape. There is no mass, stone or hydronephrosis. ADRENAL GLANDS: Within normal limits. VASCULAR: There is no aortic aneurysm. BOWEL/MESENTERY: The stomach and small bowel demonstrate no acute finding. Some of the small bowel extends into an are a of anterior-abdominal wall laxity in the midline superior to the umbilicus. Bowel staple line is pr esent at the base of the cecum and appendix is not visualized. There is bowel staple line in the dist al sigmoid colon with surrounding inflammatory change and trace fluid. There is a single locule of fr ee intraperitoneal air in the right lower quadrant. ABDOMINAL WALL: There is thickening of the left rectus abdominis muscle with a severe subcutaneous fat stranding on t he left anterior abdominal wall. Skin lui overlie this area. There are a few locules of air along the right abdominal wall. There is midline anterior abdominal wall laxity superior to the umbilicus and inferior to the umbilicus. RETROPERITONEUM: There is no lymphadenopathy. BLADDER: No wall thickening or mass. REPRODUCTIVE: Within normal limits. INGUINAL: There is no lymphadenopathy or hernia. There is a small amount of air in the right inguinal canal. MUSCULOSKELETAL: Bilateral pars defects are present at L5. CONCLUSION: 1. There are postsurgical changes characteristic of prior colostomy reversible with re anastomosis. T here are inflammatory changes and trace fluid surrounding the distal sigmoid colon area of re anastom osis. Additionally, there is thickening of the left rectus abdominis muscle and inflammatory changes along the anterior abdominal wall. These findings are related to the recent surgery and likely within the range of expected. No abscess or suspicious fluid collection is identified. Suggest followup avril ging if patient's symptoms persist or worsen. 2. There is a single locule of free intraperitoneal air and there is very mild free air along the abd ominal wall. Again since there is only a single locule of free intraperitoneal air this could be with in the range of expected given the recent surgery. Again, suggest followup if symptoms persist. Ross Schaffer MD on November 25, 2017 at 13:01 Board Certified Radiologist. This report was verified electronically.
[2017-11-25 14:00] VITALS: BP 121/72; PULSE 72; RESP 18; O2SAT 99
[2017-11-25] MEDS ORDERED: Vancomycin Consult Pharmacy 1 EA OTHER SCH (16:30)
[2017-11-25] MEDS ORDERED: oxyCODONE/ACETAMINOPHEN 10 MG/325 MG TAB PO PRN (16:30)
[2017-11-25] MEDS ORDERED: NON-FORMULARY DRUG (Naproxen Sodium 220 MG) PO PRN (16:30)
[2017-11-25] MEDS ORDERED: SODIUM CHLORIDE 0.9% FLUSH 10 ML FLUSH IV FLUSH PRN (16:30)
[2017-11-25] MEDS ORDERED: ONDANSETRON HCL 4 MG/2 ML VIAL IV PUSH PRN (16:30)
[2017-11-25] MEDS ORDERED: IBUPROFEN 600 MG TAB PO PRN (16:30)
--- NOTE | 2017-11-25 16:39 | HHI.HP ---
HPI Service General Surgery Primary Care Physician Non-Staff Admission Diagnosis wound infection sepsis Chief Complaint: Abdominal pain History of Present Illness 47 yo M s/p robot assisted colostomy reversal 11/18/17 discharged on POD 3 presents with worsening abdominal pain which he localizes to left lower abdominal wall at previous colostomy site. He feels that the area has enlarged as well and feels hard. He is tolerating some diet and had a normal BM yesterday. Otherwise he has been somewhat constipated and is requiring stool softeners and laxatives. + chills. WBC is 18. CT a/p is without oral contrast and shows many postsurgical changes. There is some inflammation at colostomy site and around anastamosis. No obvious leak. Review of Systems Constitutional: COMPLAINS OF: Chills, DENIES: Fever Eyes: DENIES: Eye inflammation, Eye pain Respiratory: DENIES: Cough, Wheezing Cardiovascular: DENIES: Chest pain, Palpitations Gastrointestinal: COMPLAINS OF: Abdominal pain, DENIES: Diarrhea, Nausea, Vomiting Musculoskeletal: COMPLAINS OF: Back pain, DENIES: Stiffness Integumentary: DENIES: Pruritus, Rash Neurologic: DENIES: Seizures, Speech Problems Past Family Social History Past Medical History Chronic back pain Past Surgical History Sigmoid resection, iliana's Colostomy reversal Reported Medications Reported Meds & Active Scripts Active Oxycodone-Acetaminophen 10-325 (Oxycodone HCl/Acetaminophen) 10 Mg-325 Mg Tablet 1-2 Tab PO Q6H PRN Reported Naproxen Sodium 220 Mg Tab 220 Mg PO BID PRN Testosterone Enanthate Inj (Testosterone Enanthate) 200 Mg/Ml Inj 200 Mg IM Q15D Amitriptyline (Amitriptyline HCl) 50 Mg Tab 50 Mg PO HS Fentanyl Patch 72 HR (Fentanyl) 50 Mcg/Hr Patch 50 Mcg T-DERMAL Q72H Remove old patch when new one placed. Morphine ER (Morphine Sulfate) 60 Mg Tab 60 Mg PO Q8H Ibuprofen 600 Mg Tab 600 Mg PO Q6H PRN Allergies: Coded Allergies: aspirin (Unverified Allergy, Unknown, 11/25/17) Active Ordered Medications Current Medications Medications (Trade) Dose Ordered Sig/Lana Route Start Time Stop Time Status Last Admin (NS Flush) 2 ml UNSCH PRN IV FLUSH 11/25/17 16:30 UNV (NS Flush) 2 ml BID IV FLUSH 11/25/17 21:00 UNV (Zofran Inj) 4 mg Q6H PRN IV PUSH 11/25/17 16:30 UNV Potassium Chloride/Dextrose/ Sod Cl 1,000 ml @ 100 mls/hr Q10H IV 11/25/17 16:23 UNV (Lovenox Inj) 40 mg Q24H SQ 11/25/17 16:30 UNV (Elavil) 50 mg HS PO 11/25/17 21:00 UNV (Duragesic 50 Mcg Patch.72 Hr) 50 patch Q72H T-DERMAL 11/25/17 16:30 UNV (Motrin) 600 mg Q6H PRN PO 11/25/17 16:30 UNV (Oramorph Sr) 60 mg Q8H PO 11/25/17 16:30 UNV (Percocet 10-325 Mg) 2 tab Q6H PRN PO 11/25/17 16:30 UNV Non-Formulary Medication 220 mg BID PRN PO 11/25/17 16:30 UNV Family History Noncontributory Social History No ETOH tobacco or drug use. Physical Exam Vital Signs Vital Signs Date Time Temp Pulse Resp B/P (MAP) Pulse Ox O2 Delivery O2 Flow Rate FiO2 11/25/17 10:16 99 18 100 Room Air 11/25/17 09:52 98.8 100 18 122/75 (91) 100 Physical Exam GENERAL: Awake and alert. No acute distress. HEAD: Normocephalic. Atraumatic. EYES: Pupils equal round and reactive to light bilaterally. No scleral icterus. ENT: Moist oral mucosa. NECK: Trachea midline. CHEST: Lungs clear to auscultation bilaterally with no wheezing or rhonchi. No respiratory distress. CARDIOVASCULAR: Regular rate and rhythm. ABDOMEN: Soft, no rebound or guarding. Colostomy site incision has erythema surrounding it. There is induration and it is tender. No fluctuance. EXTREMITIES: No cyanosis or edema. SKIN: Warm, dry, nonjaundiced. Laboratory Laboratory Tests Test 11/25/17 11:30 White Blood Count 18.7 Red Blood Count 4.48 Hemoglobin 14.0 Hematocrit 40.8 Mean Corpuscular Volume 91.1 Mean Corpuscular Hemoglobin 31.3 Mean Corpuscular Hemoglobin Concent 34.3 Red Cell Distribution Width 13.5 Platelet Count 322 Mean Platelet Volume 8.2 Neutrophils (%) (Auto) 84.2 Lymphocytes (%) (Auto) 6.7 Monocytes (%) (Auto) 5.6 Eosinophils (%) (Auto) 3.0 Basophils (%) (Auto) 0.5 Neutrophils # (Auto) 15.8 Lymphocytes # (Auto) 1.2 Monocytes # (Auto) 1.0 Eosinophils # (Auto) 0.6 Basophils # (Auto) 0.1 CBC Comment DIFF FINAL Differential Comment Urine Color YELLOW Urine Turbidity CLEAR Urine pH 6.0 Urine Specific [place] 1.036 Urine Protein 30 Urine Glucose (UA) NEG Urine Ketones TRACE Urine Occult Blood NEG Urine Nitrite NEG Urine Bilirubin NEG Urine Urobilinogen 2.0 Urine Leukocyte Esterase NEG Urine RBC 3 Urine WBC 2 Urine Squamous Epithelial Cells <1 Urine Hyaline Casts 3 Urine Mucus FEW Microscopic Urinalysis Comment CULT NOT INDICATED Blood Urea Nitrogen 16 Creatinine 0.88 Random Glucose 91 Total Protein 8.3 Albumin 3.8 Calcium Level 9.7 Alkaline Phosphatase 91 Aspartate Amino Transf (AST/SGOT) 21 Alanine Aminotransferase (ALT/SGPT) 21 Total Bilirubin 0.5 Sodium Level 136 Potassium Level 4.6 Chloride Level 100 Carbon Dioxide Level 28.2 Anion Gap 8 Estimat Glomerular Filtration Rate 92 Lactic Acid Level 1.2 Date/Time Source Procedure Growth Status 11/25/17 12:05 Blood Peripheral Aerobic Blood Culture Pending Received 11/25/17 12:05 Blood Peripheral Anaerobic Blood Culture Pending Received Result Diagram: 11/25/17 1130 11/25/17 1130 Imaging Last Impressions Abdomen/Pelvis CT 11/25/17 0000 Signed Impressions: Service Date/Time: Saturday, November 25, 2017 12:47 - CONCLUSION: 1. There are postsurgical changes characteristic of prior colostomy reversible with re anastomosis. There are inflammatory changes and trace fluid surrounding the distal sigmoid colon area of re anastomosis. Additionally, there is thickening of the left rectus abdominis muscle and inflammatory changes along the anterior abdominal wall. These findings are related to the recent surgery and likely within the range of expected. No abscess or suspicious fluid collection is identified. Suggest followup imaging if patient's symptoms persist or worsen. 2. There is a single locule of free intraperitoneal air and there is very mild free air along the abdominal wall. Again since there is only a single locule of free intraperitoneal air this could be within the range of expected given the recent surgery. Again, suggest followup if symptoms persist. MD Jeff Bah VTE Risk Assessment Jeff VTE Risk Assessment: Mod/High Risk (score >= 2) Caprini Risk Assessment Model Point Value = 1 Point Value = 2 Point Value = 3 Point Value = 5 Age 41-60 Minor surgery BMI > 25 kg/m2 Swollen legs Varicose veins or History of unexplained or recurrent spontaneous Oral contraceptives or hormone replacement Sepsis (< 1 month) Serious lung disease, including pneumonia (< 1 month) Abnormal pulmonary function Acute myocardial infarction Congestive heart failure (< 1 month) History of inflammatory bowel disease Medical patient at bed rest Age 61-74 Arthroscopic surgery Major open surgery (> 45 min) Laparoscopic surgery (> 45 min) Malignancy Confined to bed (> 72 hours) Immobilizing plaster cast Central venous access Age >= 75 History of VTE Family history of VTE Factor V Leiden Prothrombin [id number] Lupus anticoagulant Anticardiolipin antibodies Elevated serum homocysteine Heparin-induced thrombocytopenia Other congenital or acquired thrombophilia Stroke (< 1 month) Elective arthroplasty Hip, pelvis, or leg fracture Acute spinal cord injury (< 1 month) Prophylaxis Regimen Total Risk Factor Score Risk Level Prophylaxis Regimen 0-1 Low Early ambulation 2 Moderate Order ONE of the following: *Sequential Compression Device (SCD) *Heparin 5000 units SQ BID 3-4 Higher Order ONE of the following medications: *Heparin 5000 units SQ TID *Enoxaparin/Lovenox 40 mg SQ daily (WT < 150 kg, CrCl > 30 mL/min) *Enoxaparin/Lovenox 30 mg SQ daily (WT < 150 kg, CrCl > 10-29 mL/min) *Enoxaparin/Lovenox 30 mg SQ BID (WT < 150 kg, CrCl > 30 mL/min) AND/OR *Sequential Compression Device (SCD) 5 or more Highest Order ONE of the following medications: *Heparin 5000 units SQ TID (Preferred with Epidurals) *Enoxaparin/Lovenox 40 mg SQ daily (WT < 150 kg, CrCl > 30 mL/min) *Enoxaparin/Lovenox 30 mg SQ daily (WT < 150 kg, CrCl > 10-29 mL/min) *Enoxaparin/Lovenox 30 mg SQ BID (WT < 150 kg, CrCl > 30 mL/min) AND *Sequential Compression Device (SCD) Assessment and Plan Assessment and Plan 47 yo M POD 7 s/p robot assisted colostomy reversal. He appears to have a superficial wound infection at the colostomy site. There is not any apparent intraabominal infection or leak. There does not appear to be fluid which can be drained at this time. Will try IV antibiotics. If he does not improve or develops worsening exam will consider opening incision with drainage or vac placement. Leopoldo Chicas MD Nov 25, 2017 16:39
[2017-11-25 17:00] VITALS: BP 129/65; PULSE 75; RESP 18; O2SAT 99
[2017-11-25] MEDS ORDERED: MORPHINE SULFATE 60 MG CONTROLLED RELEASE TAB PO SCH (17:00)
[2017-11-25] MEDS ORDERED: D5-1/2 NS + KCL 20 MEQ INJ 1,000 ML IV SCH (17:00)
[2017-11-25] MEDS ORDERED: VANCOMYCIN INJ 1,500 MG in SODIUM CHLORID 0.9% 500 ML INJ 500 ML IV ONE (17:00)
[2017-11-25] MEDS ORDERED: ENOXAPARIN SODIUM 40 MG/0.4 ML SYRINGE SQ SCH (17:00)
[2017-11-25] MEDS ORDERED: REMOVE OLD DURAGESIC (FENTANYL) PATCH T-DERMAL SCH (18:00)
[2017-11-25] MEDS ORDERED: fentaNYL 50 MCG/HR PATCH T-DERMAL SCH ×2 (18:00)
[2017-11-25] MEDS ORDERED: PIPERACIL-TAZO 3.375 GM PREMIX 50 ML IV SCH (18:00)
[2017-11-25 18:43] VITALS: BP 114/68; PULSE 79; RESP 18; TEMP 97.6; O2SAT 98
[2017-11-25] MEDS ORDERED: HYDROmorphone HCL PF 1 MG/ML VIAL IV PRN (20:15)
[2017-11-25] MEDS ORDERED: DOCUSATE SODIUM 50 MG/SENNA 8.6 MG TAB PO SCH (21:00)
[2017-11-25] MEDS ORDERED: SODIUM CHLORIDE 0.9% FLUSH 10 ML FLUSH IV FLUSH SCH (21:00)
[2017-11-25] MEDS ORDERED: AMITRIPTYLINE HCL 50 MG TAB PO SCH (21:00)
[2017-11-25] MEDS ORDERED: IBUPROFEN 600 MG TAB PO SCH (22:00)
[2017-11-26] MEDS ORDERED: VANCOMYCIN INJ 1,500 MG in SODIUM CHLORID 0.9% 500 ML INJ 500 ML IV SCH (02:00)
[2017-11-26] MEDS ORDERED: MAGNESIUM HYDROXIDE SUSP 30 ML CUP PO SCH (09:00)
[2017-11-26] MEDS ORDERED: PNEUMOCOCCAL POLYVALENT INJ 25 MCG/0.5 ML SYR IM ONE (10:00)
[2017-11-26] MEDS ORDERED: PHARMACY ORDERED LAB ONE (17:45)
== END 2017-11-25 19:53 | disposition left against medical advice (07) ==
LOC: NEPC 09:51 → INTOOBSV 13:37 → NEDA 13:37 → N05B 18:11
PROVIDERS: ADMIT Surgery; ATTEND Surgery
DX: K94.02 Colostomy infection (principal); A41.9 Sepsis, unspecified organism; R10.30 Lower abdominal pain, unspecified; K59.00 Constipation, unspecified; M54.9 Dorsalgia, unspecified; G89.29 Other chronic pain
CPT/HCPCS: 74177; 80053; 81001; 83605; 85025; 87040; 96361; 96365; 96372; 96375; 99285; G0378; J1170; J1650; J2543; J3370; J7030; J7040; Q9967

== ENCOUNTER → 2018-02-17 | Day surgery (SDC) | payer OTHER ==
[~2018-02-17] VITALS: Ht 185.4 cm; Wt 113.7 kg
[~2018-02-17] MED LIST changes: +*morphine SULFATE 8 MG/ML PERIprocedure ONLY ONE; +ACETAMINOPHEN 1000 MG/100 ML 100 ML IV ONE; +BACL10TA PO; +BUPIVACAINE HCL PF 0.5% 30 ML VIAL ONE; +CHLORHEXIDINE GLUCONATE 2 % 1 PACK (2 CLOTHS) TOPICAL PRN; +CIPR-9 PO; +DO NOT ADM ANY ANTICOAGULANT DRUGS PRN; +HYDROmorphone HCL PF 2 MG/ML VIAL IV PUSH PRN; +LACTATED RINGER'S 1000 ML IV PRN; +LIDOCAINE HCL 1% PF 5 ML SYRINGE OTHER ONE; +METOPROLOL TARTRATE 25 MG TAB PO PRN; +MIDAZOLAM HCL 2 MG/2 ML VIAL ONE; +ONDANSETRON HCL 4 MG/2 ML VIAL IV ONE; +ONDANSETRON HCL 4 MG/2 ML VIAL IV PUSH PRN; +OXYC-395 PO; -OXYC1TAB36 PO; +PHAR500T3 PO; +POVIDONE IODINE 5% (ANTISEPSIS KIT) 4 APPLICATIONS EACH NARE PRN; +PROPOFOL 200 MG/20 ML AMP IV ONE; +SODIUM CHLORID 0.9% 500 ML IV PRN; +SODIUM CHLORIDE 0.9% FLUSH 10 ML FLUSH IV FLUSH PRN; +SODIUM CHLORIDE 0.9% FLUSH 10 ML FLUSH IV FLUSH SCH; +ceFAZolin 2 GM in NS 100 ML IV SCH; +metroNIDAZOLE 500 MG INJ 100 ML IV ONE; +oxyCODONE/ACETAMINOPHEN 5 MG/325 MG TAB ONE; +oxyCODONE/ACETAMINOPHEN 5 MG/325 MG TAB PO PRN
--- NOTE | 2018-02-17 09:12 | PD.OP ---
cc: Leopoldo Chicas MD Operative Report Date of Surgery: Feb 17, 2018 Preoperative Diagnosis: (1) Open abdominal wall wound (2) History of colostomy reversal Postoperative Diagnosis: (1) History of colostomy reversal (2) Open abdominal wall wound Procedure: Debridement of abdominal wall wound at colostomy reversal site Wound vac placement Anesthesia: GETA Surgeon: Leopoldo Chicas Head Turbine Operator(s): Padmini KOWALSKI Operation and Findings: EBL: 5 cc Operative findings: Indurated tissue small amount of epithelialized necrotic tissue in the scar of the site of colostomy reversal with small area of chronic drainage. Debridement of all necrotic and indurated tissue with placement of wound VAC. Procedure in detail: Patient was taken to the operating room placed in supine position. General anesthesia was induced. The abdomen prepped and draped in usual sterile fashion and a surgical timeout was performed to verify correct patient procedure and site. At the scar of the colostomy reversal site or is a area of chronic wound drainage. The patient was planned to have this operation to ensure no abdominal wall infection in preparation for a large ventral hernia repair with mesh. The incision was reopened and the epithelialized tract was followed down to the level of the fascia. The tract was excised as well as a fair amount of surrounding indurated fat and some of the skin scar. All the indurated tissue was excised. Hemostasis was achieved. The wound was irrigated copiously and a wound VAC was cut to size. The wound was 3 x 8 cm and 4 cm deep. The VAC was applied with good seal in place and -120 mmHg of suction. Patient tolerated procedure well. Leopoldo Chicas MD Feb 17, 2018 09:12
[2018-02-17 09:35] VITALS: BP 126/86; PULSE 76; RESP 18; O2SAT 98
== END | disposition home or self-care (01) ==
LOC: HSDC 05:54 → EDSTATUS 08:00
PROVIDERS: ATTEND Surgery
DX: Z43.3 Encounter for attention to colostomy (principal); T81.89XA Other complications of procedures, not elsewhere classified, initial encounter; B95.61 Methicillin susceptible Staphylococcus aureus infection as the cause of diseases classified elsewhere
CPT/HCPCS: 00400; 86403; 87015; 87070; 87102; 87116; 87186; 87205; 87206; 88304; 97597; 97607; J0131; J0690; J2250; J2270; J2405; J3010; J7120; 88305

== ENCOUNTER 2018-04-14 05:06 | Inpatient (IN) | payer OTHER ==
[~2018-04-14] VITALS: Ht 185.4 cm; Wt 116.4 kg
[~2018-04-14 05:06] MED LIST changes: -*morphine SULFATE 8 MG/ML PERIprocedure ONLY ONE; -ACETAMINOPHEN 1000 MG/100 ML 100 ML IV ONE; -BUPIVACAINE HCL PF 0.5% 30 ML VIAL ONE; -CHLORHEXIDINE GLUCONATE 2 % 1 PACK (2 CLOTHS) TOPICAL PRN; -CIPR-9 PO; -DO NOT ADM ANY ANTICOAGULANT DRUGS PRN; -HYDROmorphone HCL PF 2 MG/ML VIAL IV PUSH PRN; -LACTATED RINGER'S 1000 ML IV PRN; -LIDOCAINE HCL 1% PF 5 ML SYRINGE OTHER ONE; -METOPROLOL TARTRATE 25 MG TAB PO PRN; -MIDAZOLAM HCL 2 MG/2 ML VIAL ONE; -ONDANSETRON HCL 4 MG/2 ML VIAL IV ONE; -ONDANSETRON HCL 4 MG/2 ML VIAL IV PUSH PRN; -POVIDONE IODINE 5% (ANTISEPSIS KIT) 4 APPLICATIONS EACH NARE PRN; -PROPOFOL 200 MG/20 ML AMP IV ONE; -SODIUM CHLORID 0.9% 500 ML IV PRN; -SODIUM CHLORIDE 0.9% FLUSH 10 ML FLUSH IV FLUSH PRN; -SODIUM CHLORIDE 0.9% FLUSH 10 ML FLUSH IV FLUSH SCH; -ceFAZolin 2 GM in NS 100 ML IV SCH; -metroNIDAZOLE 500 MG INJ 100 ML IV ONE; -oxyCODONE/ACETAMINOPHEN 5 MG/325 MG TAB ONE; -oxyCODONE/ACETAMINOPHEN 5 MG/325 MG TAB PO PRN
[2018-04-14] MEDS ORDERED: SODIUM CHLORID 0.9% 500 ML IV PRN (05:30)
[2018-04-14] MEDS ORDERED: LACTATED RINGER'S 1000 ML IV PRN (05:30)
[2018-04-14] MEDS ORDERED: CHLORHEXIDINE GLUCONATE 2 % 1 PACK (2 CLOTHS) TOPICAL PRN (05:30)
[2018-04-14] MEDS ORDERED: metroNIDAZOLE 500 MG INJ 100 ML IV SCH (05:30)
[2018-04-14] MEDS ORDERED: ACETAMINOPHEN 1000 MG/100 ML 100 ML IV SCH (05:30)
[2018-04-14] MEDS ORDERED: METOPROLOL TARTRATE 25 MG TAB PO PRN (05:30)
[2018-04-14] MEDS ORDERED: VANCOMYCIN 1,500 MG/NS 500 ML (for 85-99 kg) IV SCH ×2 (05:30)
[2018-04-14] MEDS ORDERED: POVIDONE IODINE 5% (ANTISEPSIS KIT) 4 APPLICATIONS EACH NARE PRN (05:30)
[2018-04-14] MEDS ORDERED: HYDROmorphone HCL PF 2 MG/ML VIAL ONE (07:12)
[2018-04-14] MEDS ORDERED: KETAMINE HCL 500 MG/10 ML VIAL ONE (07:12)
[2018-04-14] MEDS ORDERED: BUPIVACAINE LIPOSOME PF 1.3% 20 ML VIAL ONE (07:22)
[2018-04-14] MEDS ORDERED: SODIUM CHLOR 0.9% 250 ML INJ 250 ML ONE (07:23)
[2018-04-14] MEDS ORDERED: BUPIVACAINE LIPOSOME PF 1.3% 20 ML VIAL INFIL ONE (10:21)
[2018-04-14] MEDS ORDERED: diphenhydrAMINE HCL 50 MG/ML VIAL ONE (11:54)
[2018-04-14] MEDS ORDERED: GLYCOPYRROLATE 1 MG/5 ML SYRINGE IV PUSH ONE (12:00)
[2018-04-14] MEDS ORDERED: PROPOFOL 200 MG/20 ML AMP IV ONE (12:00)
[2018-04-14] MEDS ORDERED: ePHEDrine/NS 25 MG/5 ML SYRINGE IV ONE (12:00)
[2018-04-14] MEDS ORDERED: NEOSTIGMINE 5 MG/5 ML SYRINGE IV PUSH ONE (12:00)
[2018-04-14] MEDS ORDERED: LIDOCAINE HCL 1% PF 5 ML SYRINGE OTHER ONE (12:00)
[2018-04-14] MEDS ORDERED: ROCURONIUM INJ 50 MG/5 ML SYRINGE IV PUSH ONE (12:00)
[2018-04-14] MEDS ORDERED: ONDANSETRON HCL 4 MG/2 ML VIAL IV ONE (12:00)
[2018-04-14] MEDS ORDERED: diphenhydrAMINE HCL 50 MG/ML VIAL IV PUSH PRN (12:15)
[2018-04-14] MEDS ORDERED: Post-op Orders (for Pharmacy) XX ONE (12:15)
[2018-04-14] MEDS ORDERED: NALOXONE HCL 0.4 MG/ML AMP IV PUSH PRN ×2 (12:15)
[2018-04-14] MEDS ORDERED: ONDANSETRON ODT 4 MG TAB PO PRN (12:15)
[2018-04-14] MEDS: SODIUM CHLOR 0.9% 1000 ML INJ 1,000 ML IV SCH ×2 (12:20→21:16)
[2018-04-14] MEDS ORDERED: MIDAZOLAM HCL 2 MG/2 ML VIAL ONE (12:29)
[2018-04-14] MEDS ORDERED: *morphine SULFATE 8 MG/ML PERIprocedure ONLY ONE (12:36)
[2018-04-14] MEDS ORDERED: *morphine SULFATE 10 MG/ML PERIprocedure ONLY ONE (12:44)
[2018-04-14] MEDS ORDERED: DO NOT ADM ANY ANTICOAGULANT DRUGS PRN (12:45)
[2018-04-14] MEDS ORDERED: *HYDROmorphone PF 0.5 MG/0.5 ML PERIprocedure ONLY ONE ×2 (12:58→13:29)
--- NOTE | 2018-04-14 13:06 | PD.OP ---
cc: Leopoldo Chicas MD Operative Report Date of Surgery: Apr 14, 2018 Preoperative Diagnosis: (1) Ventral hernia (2) Obesity (BMI 30.0-34.9) Postoperative Diagnosis: (1) Ventral hernia (2) Obesity (BMI 30.0-34.9) Procedure: Ventral hernia repair with mesh Abdominal wall reconstruction with bilateral myofascial advancement flaps Anesthesia: GEN Surgeon: Leopoldo Chicas Tmd Teacher Assistant(s): Madelyn MS3 Cassy MS3 Vesta DIESEL BUS MECHANIC Operation and Findings: EBL: 50cc Indications: The patient has a history of perforated diverticulitis requiring Gaytan's procedure. He developed incisional hernia secondary to his procedure. We then underwent robotic assisted colostomy reversal at which time he did develop a superficial wound infection at the colostomy site requiring operative incision and drainage with VAC placement. This has healed appropriately and after discussion with the patient we have opted to perform this procedure. Operative findings: 8x8 cm superior midline hernia, slovenian cheese defects throughout midline Procedure in detail: The patient was taken to the operating room placed in the supine position. General endotracheal anesthesia was induced and the abdomen was prepped and draped in usual sterile fashion. Ioban was placed. Surgical timeout was performed to verify correct patient procedure and site. The patient was administered appropriate preoperative antibiotics. A midline incision was made encompassing the entire area of previous scar in this portion of skin removed. Subcutaneous tissue divided with electrocautery. In the lower midline there was one area about a centimeter pocket of cloudy fluid. In the upper midline the hernia sac was quickly encountered. The hernia sac was divided carefully avoiding underlying contents. The entire midline fascia was divided. The hernia defect in the upper midline was about 8 x 8 cm and there were 2 or 3 Malaysian cheese defects near the umbilicus without 2 or 3 cm hernia in the lower midline some omental adhesions to the anterior abdominal wall were divided and there was no more scar tissue present. At this point, began to enter the posterior rectus sheath. Electrocautery was used to encounter the medial border of the rectus muscle. The posterior rectus space was then developed along the entire incision with electrocautery and blunt dissection. This was then repeated on the opposite side. The left lower rectus was the site of the previous colostomy. There was minimal scar tissue and dissection was straightforward. Because of the 8 cm upper midline hernia there was significant tension on the fascia when brought to the midline. Therefore, I opted to perform transversus abdominis release bilaterally as a component separation and relaxing incision. The lateral border of the rectus muscle was identified. There are neurovascular bundles were identified and avoided. A small superficial incision made in the transversus fascia in the upper portion of the incision. Using a careful combination of blunt dissection and electrocautery the transversus fascia was incised along the entire length of the incision. This was repeated identically on the opposite side. There were 2 or 3 subcentimeter holes in the posterior sheath or peritoneum inferiorly and these were closed with [id number] 3-0 Vicryl suture. The posterior fascial layer was closed with running #1 PDS suture. Hemostasis was achieved. Due to the patient's obesity, history of colostomy site infection, and cloudy fluid dissecting through the lower midline subcutaneous tissue, I opted to use a biosynthetic mesh. Therefore, a 20 x 30 cm TIGR mesh was chosen and cut to 15 x 30 cm, and the corners trimmed. The mesh was secured to the anterior fascia at the far superior and inferior portions of the incision and laterally to the cut edge of the transverses using interrupted 0 Vicryl suture. The mesh was taut. At this point to the anterior fascia was closed with running #1 looped PDS. The hernia sac was removed from the subcutaneous tissue and some of the scar tissue was removed. 2-0 Vicryl suture was used to reapproximate the subcutaneous tissue and decrease space. The skin was closed with wide skin stapler. A SEEMA dressing was applied to the patient's high risk of wound infection due to obesity and previous colon surgery and wound infections. The patient tolerated procedure well. Sponge and instrument counts were correct. He was extubated and taken to PACU in stable condition. Leopoldo Chicas MD Apr 14, 2018 13:06
[2018-04-14] MEDS: fentaNYL 50 MCG/HR PATCH T-DERMAL SCH (13:46)
[2018-04-14] MEDS: HYDROmorphone HCL PCA 6 MG/30 ML IV SCH ×4 (15:37→21:34)
[2018-04-14 16:00] VITALS: BP 142/76; PULSE 85; RESP 16; TEMP 98; O2SAT 96
[2018-04-14] MEDS: MORPHINE SULFATE 60 MG CONTROLLED RELEASE TAB PO SCH ×2 (16:00→18:29)
[2018-04-14] MEDS: ACETAMINOPHEN 1000 MG/100 ML 100 ML IV SCH (16:11)
[2018-04-14] MEDS: KETOROLAC TROMETHAMINE 30 MG/ML (IVP) VIAL IV PUSH SCH (18:29)
[2018-04-14 20:20] VITALS: BP 137/86; PULSE 89; RESP 18; TEMP 98.9; O2SAT 96
[2018-04-14] MEDS ORDERED: ZOLPIDEM TARTRATE 5 MG TAB PO PRN (21:00)
[2018-04-14] MEDS: AMITRIPTYLINE HCL 50 MG TAB PO SCH (21:16)
[2018-04-14] MEDS: SODIUM CHLORIDE 0.9% FLUSH 10 ML FLUSH IV FLUSH SCH (21:17)
[2018-04-14] MEDS: PCA - TOTAL MG DILAUDID DELIVERED PER SHIFT OTHER SCH (22:00)
[2018-04-15 00:23] VITALS: BP 133/78; PULSE 79; RESP 18; TEMP 99; O2SAT 96
[2018-04-15] MEDS: MORPHINE SULFATE 60 MG CONTROLLED RELEASE TAB PO SCH ×3 (03:00→16:38)
[2018-04-15] MEDS: HYDROmorphone HCL PCA 6 MG/30 ML IV SCH ×8 (03:01→22:22)
[2018-04-15] MEDS: ACETAMINOPHEN 1000 MG/100 ML 100 ML IV SCH ×2 (03:06→08:23)
[2018-04-15 05:00] VITALS: BP 152/75; PULSE 105; RESP 18; TEMP 98.4; O2SAT 97
[2018-04-15] MEDS: KETOROLAC TROMETHAMINE 30 MG/ML (IVP) VIAL IV PUSH SCH ×4 (05:49→16:38)
[2018-04-15] MEDS: SODIUM CHLOR 0.9% 1000 ML INJ 1,000 ML IV SCH ×2 (05:49→17:50)
[2018-04-15] MEDS: PCA - TOTAL MG DILAUDID DELIVERED PER SHIFT OTHER SCH ×3 (06:00→22:00)
[2018-04-15 08:00] VITALS: BP 116/75; PULSE 97; RESP 16; TEMP 98; O2SAT 92
[2018-04-15] MEDS: PANTOPRAZOLE SOD 40 MG DELAYED RELEASE TAB PO SCH (08:23)
[2018-04-15] MEDS: BACLOFEN 10 MG TAB PO SCH (08:23)
[2018-04-15] MEDS: SODIUM CHLORIDE 0.9% FLUSH 10 ML FLUSH IV FLUSH SCH ×2 (08:26→20:03)
--- NOTE | 2018-04-15 08:48 | HHI.PR ---
Subjective Subjective Notes C/o pain but bearable when in bed. Concerned because he didn't know had h/o MRSA. Objective Vitals/I&O Vital Signs Date Time Temp Pulse Resp B/P (MAP) Pulse Ox O2 Delivery O2 Flow Rate FiO2 04/15/18 08:31 18 04/15/18 08:00 98.0 97 116/75 (89) 92 04/14/18 14:30 Room Air 04/14/18 14:00 2 Narrative Exam No distress Abd: soft, SEEMA in place, binder Foleyclear urine A/P Assessment and Plan POD 1 AWR with TAR STable post op. Continue current care. Leopoldo Chicas MD Apr 15, 2018 08:48
[2018-04-15] MEDS: SODIUM CHLORIDE 0.9% FLUSH 10 ML FLUSH IV FLUSH PRN ×2 (09:27→11:43)
[2018-04-15] MEDS ORDERED: HYDROmorphone HCL PF 2 MG/ML VIAL IV PUSH ONE (09:30)
[2018-04-15] MEDS: ENOXAPARIN SODIUM 40 MG/0.4 ML SYRINGE SQ SCH (11:41)
[2018-04-15 12:00] VITALS: BP 118/69; PULSE 92; RESP 17; TEMP 98; O2SAT 94
[2018-04-15 16:00] VITALS: BP 151/94; PULSE 101; RESP 16; TEMP 98.2; O2SAT 97
[2018-04-15 20:00] VITALS: BP 145/95; PULSE 107; RESP 18; TEMP 99; O2SAT 91
[2018-04-15] MEDS: AMITRIPTYLINE HCL 50 MG TAB PO SCH (20:03)
[2018-04-16] VITALS (7 sets, daily range): BP systolic 136–164; BP diastolic 72–109; PULSE 89–115; RESP 18; TEMP 97.2–98.7; O2SAT 92–98
[2018-04-16] MEDS: HYDROmorphone HCL PCA 6 MG/30 ML IV SCH ×7 (00:56→19:28)
[2018-04-16] MEDS: SODIUM CHLOR 0.9% 1000 ML INJ 1,000 ML IV SCH ×2 (04:16→16:07)
[2018-04-16] MEDS: PCA - TOTAL MG DILAUDID DELIVERED PER SHIFT OTHER SCH ×3 (04:16→19:30)
[2018-04-16] MEDS: KETOROLAC TROMETHAMINE 30 MG/ML (IVP) VIAL IV PUSH SCH ×5 (04:16→23:58)
[2018-04-16] MEDS: MORPHINE SULFATE 60 MG CONTROLLED RELEASE TAB PO SCH ×4 (08:35→17:31)
[2018-04-16] MEDS: SODIUM CHLORIDE 0.9% FLUSH 10 ML FLUSH IV FLUSH SCH ×2 (08:35→19:22)
[2018-04-16] MEDS: PANTOPRAZOLE SOD 40 MG DELAYED RELEASE TAB PO SCH (08:35)
[2018-04-16] MEDS: BACLOFEN 10 MG TAB PO SCH (08:35)
[2018-04-16] MEDS: ENOXAPARIN SODIUM 40 MG/0.4 ML SYRINGE SQ SCH (11:11)
--- NOTE | 2018-04-16 11:52 | HHI.PR ---
Subjective Subjective Notes C/o pain. Objective Vitals/I&O Vital Signs Date Time Temp Pulse Resp B/P (MAP) Pulse Ox O2 Delivery O2 Flow Rate FiO2 04/16/18 10:02 17 04/16/18 08:00 97.2 95 149/93 (111) 95 04/14/18 14:30 Room Air 04/14/18 14:00 2 Narrative Exam No distress Abd: soft, SEEMA in place, binder Foleyclear urine A/P Assessment and Plan POD 2 AWR with TAR Stable post op. Continue current care. Continue goins catheter. Change oramorph to 6a,noon,6p. Leopoldo Chicas MD Apr 16, 2018 11:52
[2018-04-16] MEDS: AMITRIPTYLINE HCL 50 MG TAB PO SCH (19:22)
[2018-04-17] VITALS (7 sets, daily range): BP systolic 135–148; BP diastolic 75–94; PULSE 85–95; RESP 18–20; TEMP 97.7–98.6; O2SAT 96–99
[2018-04-17] MEDS: HYDROmorphone HCL PCA 6 MG/30 ML IV SCH ×8 (00:03→21:45)
[2018-04-17] MEDS: KETOROLAC TROMETHAMINE 30 MG/ML (IVP) VIAL IV PUSH SCH ×3 (04:25→17:09)
[2018-04-17] MEDS: PCA - TOTAL MG DILAUDID DELIVERED PER SHIFT OTHER SCH ×3 (04:29→20:08)
[2018-04-17] MEDS: MORPHINE SULFATE 60 MG CONTROLLED RELEASE TAB PO SCH ×3 (05:42→18:12)
[2018-04-17] MEDS: SODIUM CHLOR 0.9% 1000 ML INJ 1,000 ML IV SCH ×2 (06:20→18:13)
[2018-04-17] MEDS: PANTOPRAZOLE SOD 40 MG DELAYED RELEASE TAB PO SCH (08:44)
[2018-04-17] MEDS: BACLOFEN 10 MG TAB PO SCH (08:44)
[2018-04-17] MEDS: SODIUM CHLORIDE 0.9% FLUSH 10 ML FLUSH IV FLUSH SCH ×2 (08:51→20:04)
--- NOTE | 2018-04-17 11:26 | HHI.PR ---
Subjective Subjective Notes Stable. Pain only significant when he moves. Objective Vitals/I&O Vital Signs Date Time Temp Pulse Resp B/P (MAP) Pulse Ox O2 Delivery O2 Flow Rate FiO2 04/17/18 10:28 18 04/17/18 08:00 98.6 85 135/76 (95) 99 04/14/18 14:30 Room Air 04/14/18 14:00 2 Narrative Exam No distress Abd: soft, SEEMA in place, binder Goins clear urine A/P Assessment and Plan POD 3 AWR with TAR Stable post op. Continue current care. D/c goins catheter. Change oramorph and oxycodone to 6a ,noon,6p. Encourage OOB And ambulation. Leopoldo Chicas MD Apr 17, 2018 11:26
[2018-04-17] MEDS ORDERED: HYDROmorphone HCL PF 2 MG/ML VIAL IV PUSH ONE (11:30)
[2018-04-17] MEDS: ENOXAPARIN SODIUM 40 MG/0.4 ML SYRINGE SQ SCH (12:00)
[2018-04-17 13:26] LABS: AUTOMATED NEUTROPHIL # 7.8 TH/MM3 (1.8-7.7); BASOPHIL # 0.1 TH/MM3 (0-0.2); EOSINOPHIL # 0.6 TH/MM3 (0-0.4); EOSINOPHIL % 5.7 % (0.0-4.0); HEMATOCRIT 39.8 % (39.0-51.0); HEMOGLOBIN 13.5 GM/DL (13.0-17.0); LYMPH % 16.9 % (9.0-44.0); LYMPHOCYTE # 1.9 TH/MM3 (1.0-4.8); MEAN CELL VOLUME 87.9 FL (80.0-100.0); MEAN CORPUSCULAR HEMOGLOBIN 29.8 PG (27.0-34.0); MEAN CORPUSCULAR HGB CONC 33.9 % (32.0-36.0); MEAN PLATELET VOLUME 8.9 FL (7.0-11.0); MONO % 6.7 % (0.0-8.0); MONOCYTE # 0.8 TH/MM3 (0-0.9); NEUT % 69.7 % (16.0-70.0); PLATELET COUNT 298 TH/MM3 (150-450); RED BLOOD COUNT 4.53 MIL/MM3 (4.50-5.90); RED CELL DISTRIBUTION WIDTH 13.8 % (11.6-17.2); WHITE BLOOD COUNT 11.2 TH/MM3 (4.0-11.0)
[2018-04-17] MEDS: REMOVE OLD DURAGESIC (FENTANYL) PATCH T-DERMAL SCH (16:00)
[2018-04-17] MEDS: fentaNYL 50 MCG/HR PATCH T-DERMAL SCH (17:09)
[2018-04-17] MEDS: AMITRIPTYLINE HCL 50 MG TAB PO SCH (20:07)
[2018-04-18] VITALS: BP 131/88; PULSE 86; RESP 18; TEMP 98; O2SAT 97
[2018-04-18] MEDS: KETOROLAC TROMETHAMINE 30 MG/ML (IVP) VIAL IV PUSH SCH ×5 (00:06→23:46)
[2018-04-18] MEDS: SODIUM CHLOR 0.9% 1000 ML INJ 1,000 ML IV SCH ×2 (05:40→18:18)
[2018-04-18] MEDS: MORPHINE SULFATE 60 MG CONTROLLED RELEASE TAB PO SCH ×3 (05:45→18:09)
[2018-04-18] MEDS: PCA - TOTAL MG DILAUDID DELIVERED PER SHIFT OTHER SCH ×3 (06:00→19:58)
[2018-04-18] MEDS: HYDROmorphone HCL PCA 6 MG/30 ML IV SCH ×6 (06:27→21:28)
[2018-04-18 08:00] VITALS: BP 140/84; PULSE 81; RESP 17; TEMP 98.4; O2SAT 93
[2018-04-18] MEDS: SODIUM CHLORIDE 0.9% FLUSH 10 ML FLUSH IV FLUSH SCH ×2 (09:00→19:57)
[2018-04-18 12:00] VITALS: BP 122/61; PULSE 70; RESP 19; TEMP 97.6; O2SAT 97
[2018-04-18] MEDS: PANTOPRAZOLE SOD 40 MG DELAYED RELEASE TAB PO SCH (12:13)
[2018-04-18] MEDS: BACLOFEN 10 MG TAB PO SCH (12:16)
--- NOTE | 2018-04-18 12:47 | HHI.PR ---
Subjective Subjective Notes The patient states that he is having less pain today than yesterday by a very slight amount. He is been out of bed more and slightly more easily than yesterday. The catheter was removed and he is voiding well without problems. He has no other complaints other than a point tenderness which is new in the right lower abdomen several centimeters lateral to the midline incision. Objective Vitals/I&O Vital Signs Date Time Temp Pulse Resp B/P (MAP) Pulse Ox O2 Delivery O2 Flow Rate FiO2 04/18/18 12:00 97.6 70 19 122/61 (81) 97 04/14/18 14:30 Room Air 04/14/18 14:00 2 Labs Laboratory Tests Test 04/17/18 12:49 04/17/18 17:15 White Blood Count 11.2 Red Blood Count 4.53 Hemoglobin 13.5 Hematocrit 39.8 Mean Corpuscular Volume 87.9 Mean Corpuscular Hemoglobin 29.8 Mean Corpuscular Hemoglobin Concent 33.9 Red Cell Distribution Width 13.8 Platelet Count 298 Mean Platelet Volume 8.9 Neutrophils (%) (Auto) 69.7 Lymphocytes (%) (Auto) 16.9 Monocytes (%) (Auto) 6.7 Eosinophils (%) (Auto) 5.7 Basophils (%) (Auto) 1.0 Neutrophils # (Auto) 7.8 Lymphocytes # (Auto) 1.9 Monocytes # (Auto) 0.8 Eosinophils # (Auto) 0.6 Basophils # (Auto) 0.1 CBC Comment DIFF FINAL Differential Comment Nasal Screen MRSA (PCR) MRSA DETECTED Cardiovascular: Regular Lungs: Clear Abdomen: Non-distended, Post-op tenderness Narrative Exam The lydia dressing is still in place and there is no evidence of inflammation. A/P Assessment and Plan Impression: Status post repair of abdominal wall hernia via abdominal wall reconstruction. He is stable and improving with no major problems other than pain. Plan: Continue increasing his activity as tolerated. Nick Thrasher MD Apr 18, 2018 12:47
[2018-04-18] MEDS: ENOXAPARIN SODIUM 40 MG/0.4 ML SYRINGE SQ SCH (13:01)
[2018-04-18 16:00] VITALS: BP 130/81; PULSE 78; RESP 18; TEMP 97.9; O2SAT 95
[2018-04-18 19:52] VITALS: RESP 20
[2018-04-18] MEDS: AMITRIPTYLINE HCL 50 MG TAB PO SCH (19:57)
[2018-04-18 20:00] VITALS: BP 138/84; PULSE 83; RESP 20; TEMP 98; O2SAT 96
[2018-04-19] VITALS (7 sets, daily range): BP systolic 124–159; BP diastolic 80–94; PULSE 68–86; RESP 17–20; TEMP 97.6–98.5; O2SAT 93–99
[2018-04-19] MEDS: KETOROLAC TROMETHAMINE 30 MG/ML (IVP) VIAL IV PUSH SCH ×2 (05:20→12:02)
[2018-04-19] MEDS: PCA - TOTAL MG DILAUDID DELIVERED PER SHIFT OTHER SCH ×3 (05:21→19:59)
[2018-04-19] MEDS: MORPHINE SULFATE 60 MG CONTROLLED RELEASE TAB PO SCH ×3 (05:22→18:07)
[2018-04-19] MEDS: HYDROmorphone HCL PCA 6 MG/30 ML IV SCH ×7 (05:27→23:02)
[2018-04-19] MEDS: PANTOPRAZOLE SOD 40 MG DELAYED RELEASE TAB PO SCH (08:28)
[2018-04-19] MEDS: BACLOFEN 10 MG TAB PO SCH (08:28)
[2018-04-19] MEDS: SODIUM CHLORIDE 0.9% FLUSH 10 ML FLUSH IV FLUSH SCH ×2 (08:28→19:58)
[2018-04-19] MEDS: SODIUM CHLOR 0.9% 1000 ML INJ 1,000 ML IV SCH ×2 (08:29→22:08)
[2018-04-19] MEDS: ENOXAPARIN SODIUM 40 MG/0.4 ML SYRINGE SQ SCH (12:02)
--- NOTE | 2018-04-19 17:05 | HHI.PR ---
Subjective Subjective Notes The patient continues to feel better each day. He is passing flatus but has not had a bowel movement yet. His pain is still controlled better than it was a few days ago. He has been out of bed walking more today with minimal problems. Objective Vitals/I&O Vital Signs Date Time Temp Pulse Resp B/P (MAP) Pulse Ox O2 Delivery O2 Flow Rate FiO2 04/19/18 14:40 16 04/19/18 12:00 97.9 68 131/87 (102) 97 Cardiovascular: Regular Lungs: Clear Abdomen: Non-distended, Post-op tenderness Extremities: No edema Narrative Exam The lydia dressing is still in place and there is no evidence of inflammation. A/P Assessment and Plan Impression: Status post repair of abdominal wall hernia via abdominal wall reconstruction. He is stable and improving with no major problems other than pain. Plan: Continue increasing his activity as tolerated. A CBC and BMP will be ordered in the morning I have increased his diet to full liquids and ordered local magnesia daily. Nick Thrasher MD Apr 19, 2018 17:05
[2018-04-19] MEDS: AMITRIPTYLINE HCL 50 MG TAB PO SCH (19:58)
[2018-04-19] MEDS: MAGNESIUM HYDROXIDE SUSP 30 ML CUP PO SCH (19:58)
[2018-04-20 00:24] VITALS: BP 162/76; PULSE 78; RESP 18; TEMP 97.8; O2SAT 95
[2018-04-20 04:53] VITALS: BP 140/81; PULSE 71; RESP 16; TEMP 97.8; O2SAT 98
[2018-04-20] MEDS: MORPHINE SULFATE 60 MG CONTROLLED RELEASE TAB PO SCH ×3 (05:13→17:40)
[2018-04-20] MEDS: PCA - TOTAL MG DILAUDID DELIVERED PER SHIFT OTHER SCH ×3 (05:15→21:38)
[2018-04-20] MEDS: HYDROmorphone HCL PCA 6 MG/30 ML IV SCH ×3 (05:32→18:53)
[2018-04-20 08:00] VITALS: BP 131/86; PULSE 75; RESP 16; TEMP 98.1; O2SAT 98
--- NOTE | 2018-04-20 08:22 | HHI.PR ---
Subjective Subjective Notes Still painful mostly in RLQ sharp shooting pain. + BM. Objective Vitals/I&O Vital Signs Date Time Temp Pulse Resp B/P (MAP) Pulse Ox O2 Delivery O2 Flow Rate FiO2 04/20/18 05:32 18 04/20/18 04:53 97.8 71 140/81 (100) 98 Narrative Exam No distress Abd: soft, SEEMA in place, binder A/P Assessment and Plan POD 6 AWR with TAR Stable post op. Still significant pain. Concerned for some withdrawal when TOBACCO GROWER stops. Half TOBACCO GROWER dose. Vistaril PRN for withdrawal symptoms. Likely dc home tomorrow. F/u labs. Give bactroban nasal for +MRSA. Leopoldo Chicas MD Apr 20, 2018 08:22
[2018-04-20] MEDS: PANTOPRAZOLE SOD 40 MG DELAYED RELEASE TAB PO SCH (08:26)
[2018-04-20] MEDS: BACLOFEN 10 MG TAB PO SCH (08:26)
[2018-04-20] MEDS: SODIUM CHLORIDE 0.9% FLUSH 10 ML FLUSH IV FLUSH SCH ×2 (08:27→21:00)
[2018-04-20 12:00] VITALS: BP 139/86; PULSE 70; RESP 18; TEMP 97.2; O2SAT 99
[2018-04-20] MEDS: IBUPROFEN 800 MG TAB PO SCH ×2 (12:40→21:35)
[2018-04-20] MEDS: ENOXAPARIN SODIUM 40 MG/0.4 ML SYRINGE SQ SCH (12:41)
[2018-04-20] MEDS: MUPIROCIN 2% OINT 1 APPLIC/GM SYR EACH NARE SCH ×2 (12:46→21:38)
[2018-04-20] MEDS: SODIUM CHLOR 0.9% 1000 ML INJ 1,000 ML IV SCH ×2 (12:47→21:37)
[2018-04-20 13:07] LABS: AUTOMATED NEUTROPHIL # 5.6 TH/MM3 (1.8-7.7); BASOPHIL # 0.1 TH/MM3 (0-0.2); EOSINOPHIL # 0.5 TH/MM3 (0-0.4); EOSINOPHIL % 5.9 % (0.0-4.0); HEMATOCRIT 35.4 % (39.0-51.0); HEMOGLOBIN 12.3 GM/DL (13.0-17.0); LYMPH % 16.1 % (9.0-44.0); LYMPHOCYTE # 1.3 TH/MM3 (1.0-4.8); MEAN CORPUSCULAR HEMOGLOBIN 30.1 PG (27.0-34.0); MEAN CORPUSCULAR HGB CONC 34.6 % (32.0-36.0); MEAN PLATELET VOLUME 7.7 FL (7.0-11.0); MONO % 6.9 % (0.0-8.0); MONOCYTE # 0.5 TH/MM3 (0-0.9); NEUT % 70.1 % (16.0-70.0); PLATELET COUNT 305 TH/MM3 (150-450); RED BLOOD COUNT 4.07 MIL/MM3 (4.50-5.90); RED CELL DISTRIBUTION WIDTH 13.6 % (11.6-17.2); WHITE BLOOD COUNT 7.9 TH/MM3 (4.0-11.0)
[2018-04-20 13:19] LABS: BICARBONATE 29.4 MEQ/L (21.0-32.0); CALCIUM 8.7 MG/DL (8.5-10.1); CREATININE 0.8 MG/DL (0.60-1.30)
[2018-04-20 16:00] VITALS: BP 123/74; PULSE 69; RESP 16; TEMP 97.3; O2SAT 97
[2018-04-20] MEDS: REMOVE OLD DURAGESIC (FENTANYL) PATCH T-DERMAL SCH (16:00)
[2018-04-20] MEDS: fentaNYL 50 MCG/HR PATCH T-DERMAL SCH (17:40)
[2018-04-20 20:00] VITALS: BP 123/77; PULSE 64; RESP 16; TEMP 97.7; O2SAT 96
[2018-04-20] MEDS: MAGNESIUM HYDROXIDE SUSP 30 ML CUP PO SCH (21:00)
[2018-04-20] MEDS: AMITRIPTYLINE HCL 50 MG TAB PO SCH (21:35)
[2018-04-21] VITALS: BP 121/78; PULSE 68; RESP 16; TEMP 97.4; O2SAT 92
[2018-04-21] MEDS: HYDROmorphone HCL PCA 6 MG/30 ML IV SCH (03:17)
[2018-04-21] MEDS: IBUPROFEN 800 MG TAB PO SCH (05:50)
[2018-04-21] MEDS: MORPHINE SULFATE 60 MG CONTROLLED RELEASE TAB PO SCH ×2 (05:51→11:48)
[2018-04-21] MEDS: PCA - TOTAL MG DILAUDID DELIVERED PER SHIFT OTHER SCH (05:53)
[2018-04-21 08:00] VITALS: BP 116/73; PULSE 69; RESP 16; TEMP 97.4; O2SAT 94
[2018-04-21] MEDS: BACLOFEN 10 MG TAB PO SCH (08:58)
[2018-04-21] MEDS: MUPIROCIN 2% OINT 1 APPLIC/GM SYR EACH NARE SCH (08:58)
[2018-04-21] MEDS: PANTOPRAZOLE SOD 40 MG DELAYED RELEASE TAB PO SCH (08:58)
[2018-04-21] MEDS: SODIUM CHLORIDE 0.9% FLUSH 10 ML FLUSH IV FLUSH SCH (09:01)
[2018-04-21] MEDS ORDERED: VIST25CA PO (10:36)
[2018-04-21] MEDS ORDERED: NYST15T TOPICAL (10:37)
--- NOTE | 2018-04-21 10:39 | HHI.DS ---
Discharge Summary Admission Date Apr 14, 2018 at 05:06 Discharge Date: Apr 21, 2018 Admitting Diagnosis (1) Ventral hernia ICD Codes: K43.9 - Ventral hernia without obstruction or gangrene (2) History of colostomy reversal ICD Codes: Z98.890 - Other specified postprocedural states CBC/BMP: 04/20/18 1229 04/20/18 1229 Significant Findings Laboratory Tests Test 04/20/18 12:29 Red Blood Count 4.07 MIL/MM3 (4.50-5.90) Hemoglobin 12.3 GM/DL (13.0-17.0) Hematocrit 35.4 % (39.0-51.0) Neutrophils (%) (Auto) 70.1 % (16.0-70.0) Eosinophils (%) (Auto) 5.9 % (0.0-4.0) Eosinophils # (Auto) 0.5 TH/MM3 (0-0.4) PE at Discharge No distress Abd: soft, SEEMA removed- inc c/d/i; on left side possible fungal rash Hospital Course Patient has h/o of narcotic use secondary to chronic back pain under care of pain management. 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 He continued to have mild improvement in pain. He tolerated fulls and had a BM. Ambulated. SEEMA dressing left in place until day of discharge. No symptoms of withdrawal with decrease in ELECTRIC TRUCKER dosage. Pt Condition on Discharge: Good Discharge Disposition: Discharge Home Discharge Instructions DIET: Follow Instructions for: As Tolerated, No Restrictions Activities you can perform: See Additionl Instruction Other Activity Instructions: Ok to shower. No driving for 3-5 more days. Avoid heavy lifting. Follow up Referrals: Surgical - 04/29/18 with Leopoldo Chicas MD New Medications: Hydroxyzine Pamoate (Vistaril) 25 Mg Cap 25-50 MG PO Q6H PRN for ANXIETY, #30 CAP 0 Refills Nystatin Topical (Nystatin Topical) 100,000 unit/gm Cream 1 APPLIC TOPICAL BID for Infection, #15 GM 0 Refills Continued Medications: Acetaminophen (Extra Strength Pain Relief) 500 Mg Tab 1000 MG PO Q4-6H PRN for PAIN, TAB Amitriptyline (Amitriptyline) 50 Mg Tab 50 MG PO HS, TAB Baclofen (Baclofen) 10 Mg Tab 10 MG PO DAILY, TAB 0 Refills Fentanyl Patch 72 HR (Fentanyl Patch 72 HR) 50 Mcg/Hr Patch 50 MCG T-DERMAL Q72H for Pain Management, #10 PATCH 0 Refills Remove old patch when new one placed. Ibuprofen (Ibuprofen) 600 Mg Tab 1200 MG PO TID PRN for PAIN SCALE 1 TO 10, TAB 0 Refills Morphine ER (Morphine ER) 60 Mg Tab 60 MG PO Q8H for Pain Management, TAB 0 Refills Naproxen Sodium (Naproxen Sodium) 220 Mg Tab 220 MG PO BID PRN for Pain Management, TAB 0 Refills Oxycodone (Oxycodone) 10 Mg Tab 10 MG PO Q8H PRN for PAIN, TAB 0 Refills Testosterone Enanthate Inj (Testosterone Enanthate Inj) 200 Mg/Ml Inj 200 MG IM Q15D for Hormone Replacement, #1 VIAL 0 Refills Leopoldo Chicas MD Apr 21, 2018 10:39
[2018-04-21] MEDS: ENOXAPARIN SODIUM 40 MG/0.4 ML SYRINGE SQ SCH (11:49)
== END 2018-04-21 15:39 | disposition home or self-care (01) | DRG 355 ==
LOC: HSDI 05:06 → N07A 15:03
PROVIDERS: ADMIT Surgery; ATTEND Surgery
PROC: 0KXL0Z6 Transfer Left Abdomen Muscle, Transverse Rectus Abdominis Myocutaneous Flap, Open Approach (ICD-10-PCS; 2018-04-14)
PROC: 0KXK0Z6 Transfer Right Abdomen Muscle, Transverse Rectus Abdominis Myocutaneous Flap, Open Approach (ICD-10-PCS; 2018-04-14)
PROC: 0WUF0JZ Supplement Abdominal Wall with Synthetic Substitute, Open Approach (ICD-10-PCS; principal; 2018-04-14 07:54)
DX: K43.2 Incisional hernia without obstruction or gangrene (principal); E66.9 Obesity, unspecified; Z68.33 Body mass index [BMI] 33.0-33.9, adult; M54.9 Dorsalgia, unspecified; G89.29 Other chronic pain; G89.18 Other acute postprocedural pain; Z22.322 Carrier or suspected carrier of Methicillin resistant Staphylococcus aureus
CPT/HCPCS: 76937; 80048; 85025; 87641; C1781; C9290; J0131; J1170; J1200; J1650; J1885; J2250; J2270; J2405; J2710; J3010; J3370; J7030; J7040; J7050; J7120